=== PATIENT | male | born 1960 | race Two or more races ===

== ENCOUNTER 2016-11-05 17:44 | Emergency (ER) | payer MEDICARE, MEDICAID ==
[2016-11-05 17:52] VITALS: BP 128/81
[2016-11-05] MEDS ORDERED: BSS OPTH.SOL* BTL OPHTHALMIC ONE (18:32)
[2016-11-05] MEDS ORDERED: Fluorescein Sodium TOPICAL* 1 MG TEST OPHTHALMIC ONE (18:32)
[2016-11-05] MEDS ORDERED: Tetracaine 0.5% OPTH.SOL 4 ML* 1 DROP BTL ONE (18:33)
--- NOTE | 2016-11-05 18:35 | UC ---
Eye Complaint HPI - HPI Summary HPI Summary: awoke with a red irritated left eye was working under his truck last night and feels he may have gotten debris in it- - History of Current Complaint Chief Complaint: UCEye Stated Complaint: FOREIGN BODY IN EYE Time Seen by Provider: 11/05/16 18:27 Hx Obtained From: Patient Onset/Duration: Sudden Onset, Lasting Days - 1 Timing: Constant Severity Initially: Moderate Severity Currently: Moderate Pain Intensity: 6 Pain Scale Used: 0-10 Numeric Location of Injury: Conjunctiva Character: Foreign Body Sensation Aggravating Factor(s): Nothing Alleviating Factor(s): Darkness Associated Signs And Symptoms: Positive: Drainage (Clear) - Allergies/Home Medications Allergies/Adverse Reactions: Allergies Allergy/AdvReac Type Severity Reaction Status Date / Time Penicillins Allergy Intermediate Rash Verified 11/05/16 17:49 penici Allergy Rash Uncoded 02/28/14 11:47 PMH/Surg Hx/FS Hx/Imm Hx Previously Healthy: No Endocrine History: Dyslipidemia Cardiovascular History: Hypertension, Pacemaker/ICD, Atrial Fibrillation - Surgical History Surgical History: Yes Surgery Procedure, Year, and Place: pacemaker 04/2013, angioplasty 07/1990, 5 strokes in 2001 - Family History Known Family History: Positive: None - Social History Occupation: Disabled Lives: With Family Alcohol Use: Daily Alcohol Amount: 8-12 beers a day Substance Use Type: None Smoking Status (MU): Heavy Every Day Tobacco Smoker Type: Cigarettes Have You Smoked in the Last Year: Yes Household Exposure Type: Cigarettes Cessation Counseling: Counseled 3+Min - 10 Min - Immunization History Hx Tetanus, Diphtheria Vaccination: Yes Vaccination Up to Date: Yes Review of Systems Constitutional: Negative Skin: Negative Eyes: Drainage, Eye Redness ENT: Negative Respiratory: Negative Cardiovascular: Negative Gastrointestinal: Negative Genitourinary: Negative Motor: Negative Neurovascular: Negative Musculoskeletal: Negative Neurological: Negative Psychological: Negative Is Patient Immunocompromised?: No All Other Systems Reviewed And Are Negative: Yes Physical Exam Triage Information Reviewed: Yes Appearance: Well-Appearing, No Pain Distress, Obese Vital Signs: Initial Vital Signs Temp 98 F 11/05/16 17:50 Pulse 87 11/05/16 17:50 Resp 18 11/05/16 17:50 BP 128/81 11/05/16 17:50 Pulse Ox 100 11/05/16 17:50 Vital Signs Reviewed: Yes Eye Exam: Other Eyes: Positive: Conjunctiva Inflamed, Discharge ENT Exam: Normal ENT: Positive: Normal ENT inspection, Hearing grossly normal, Pharynx normal, TMs normal. Negative: Nasal congestion, Nasal drainage, Trismus, Muffled/ hoarse voice Neck exam: Normal Neck: Positive: Supple, Nontender Respiratory Exam: Normal Respiratory: Positive: Chest non-tender, No respiratory distress, No accessory muscle use Cardiovascular Exam: Normal Cardiovascular: Positive: RRR, No Murmur, Pulses Normal, Brisk Capillary Refill Musculoskeletal Exam: Normal Musculoskeletal: Positive: Strength Intact, ROM Intact, No Edema Neurological Exam: Normal Neurological: Positive: Alert, Muscle Tone Normal Psychological Exam: Normal Skin Exam: Normal Re-Evaluation - Re-Evaluation First Eval Change: Unchanged - lids fliped eye stained with flu-glu stain, no fb or ulceration observed, patient tolerated well Eye Complaint Course/Dx - Course Course Of Treatment: cool comppress, antibiodic eye drops, nicotine dependence education, follow with optho if worsens or fails to improve - Differential Dx/Diagnosis Differential Diagnosis/HQI/PQRI: Conjunctivitis, Periorbital Cellulitis, Orbital Cellulitis Provider Diagnoses: Nicotine dependent, OS conjuctivitis Discharge - Discharge Plan Condition: Stable Disposition: HOME Prescriptions: Polymyx/Trimethoprim OPTH* [Polytrim OPHTH*] 1 drop LEFT EYE Q4H #1 btl Patient Education Materials: How to Use Eye Drops (ED), Eye Foreign Body (ED) Referrals: Gabino Luis MD [Medical Doctor] - If Needed
== END 2016-11-05 19:06 | disposition home or self-care (01) ==
LOC: UCEAST 17:44
DX: H10.32 Unspecified acute conjunctivitis, left eye (principal); Z88.0 Allergy status to penicillin; E78.5 Hyperlipidemia, unspecified; I10 Essential (primary) hypertension; I48.91 Unspecified atrial fibrillation; Z95.0 Presence of cardiac pacemaker; E66.9 Obesity, unspecified; F17.210 Nicotine dependence, cigarettes, uncomplicated; Z71.6 Tobacco abuse counseling
CPT/HCPCS: 99212; A9270-GY; G0463

== ENCOUNTER 2017-03-16 13:43 | Emergency (ER) | payer MEDICARE, MEDICAID ==
[2017-03-16 13:57] VITALS: BP 135/62
--- NOTE | 2017-03-16 14:21 | UC ---
Shortness of Breath HPI - HPI Summary HPI Summary: PT WITH SEVERAL WEEK OF COUGH AND CONGESTION. PAST FEW DAYS HAS HAD INCREASING SOB AND HICKS. HAS SOB EVEN AT REST. FEELING EXTREMELY TIRED AND "DRAINED". DENIES CP, N/V. HAD A FEVER A FEW DAYS AGO BUT NONE SINCE THAT HE KNOWS OF. RIGHT EAR WITH INTERMITTENT SHARP PAINS. ON ARRIVAL O2SAT 84-89%. PT IS A HEAVY DRINKER AND SMOKER. HAS A NEBULIZER AT HOME. DID NOT USE IT. - History of Current Complaint Chief Complaint: UCRespiratory Stated Complaint: SINUS ISSUE COUGH EAR PAIN Time Seen by Provider: 03/16/17 14:04 Hx Obtained From: Patient Onset/Duration: Gradual Onset, Lasting Days, Still Present Timing: Constant Current Severity: Moderate Dyspnea At: Rest Aggrevating Factors: Movement, Deep Breaths Alleviating Factors: Nothing Associated Signs & Symptoms: Positive: Cough (Productive), Wheezing - Allergy/Home Medications Allergies/Adverse Reactions: Allergies Allergy/AdvReac Type Severity Reaction Status Date / Time Penicillins Allergy Intermediate Rash Verified 03/16/17 13:58 Amoxicillin Allergy hives, Verified 03/16/17 13:58 itching penici Allergy Rash Uncoded 02/28/14 11:47 Home Medications: Home Medications Warfarin TAB(*) [Coumadin TAB(*)] 1 tab PO 03/16/17 [History] PMH/Surg Hx/FS Hx/Imm Hx Cardiovascular History: Cardiac Disease, Pacemaker/ICD Respiratory History: COPD Neurological History: CVA - Surgical History Surgical History: Yes Surgery Procedure, Year, and Place: pacemaker 04/2013, angioplasty 07/1990, 5 strokes in 2001 - Family History Known Family History: Positive: Cardiac Disease, Hypertension - Social History Alcohol Use: Daily Alcohol Amount: 8-12 beers a day Substance Use Type: None Smoking Status (MU): Heavy Every Day Tobacco Smoker Type: Cigarettes Have You Smoked in the Last Year: Yes Household Exposure Type: Cigarettes - Immunization History Hx Tetanus, Diphtheria Vaccination: Yes Vaccination Up to Date: Yes Review of Systems Constitutional: Fever, Fatigue Respiratory: Shortness Of Breath, Cough Cardiovascular: Negative Gastrointestinal: Negative Neurological: Weakness All Other Systems Reviewed And Are Negative: Yes Physical Exam Triage Information Reviewed: Yes Appearance: Well-Appearing, No Pain Distress, Well-Nourished, Other: - APPEARS MUCH OLDER THAN STATED AGE Vital Signs: Initial Vital Signs Temp 100 F 03/16/17 13:48 Pulse 107 03/16/17 13:48 Resp 20 03/16/17 13:48 BP 135/62 03/16/17 13:48 Pulse Ox 89 03/16/17 13:48 Vital Signs Reviewed: Yes Eyes: Positive: Conjunctiva Clear ENT: Positive: Hearing grossly normal, Pharynx normal, Other - RIGHT EAC OCCLUDED WITH CERUMEN. AFTER IRRIGATION EAC SLIGHTLY MACERATED BUT TM NORMAL. LEFT TM NORMAL Neck: Positive: Supple, Nontender, No Lymphadenopathy Respiratory: Positive: No respiratory distress, No accessory muscle use, Decreased breath sounds. Negative: Rhonchi, Wheezing Cardiovascular: Positive: Tachycardia Abdomen Description: Positive: Soft Musculoskeletal: Positive: No Edema Neurological: Positive: Alert Psychological: Positive: Normal Response To Family, Age Appropriate Behavior Skin: Negative: rashes Shortness of Breath Dx - Differential Dx/Diagnosis Provider Diagnoses: HYPOXIA/SOB/COUGH - Physician Notification/Consults Discussed Patient Care With: Vidya Mchugh - TO [facility] – [place] ED BY AMBULANCE Time Discussed With Above Provider: 14:30 Instructed by Provider To: Will See In ED Discharge - Discharge Plan Condition: Stable Disposition: TRANS HIGHER LVL OF CARE FAC Patient Education Materials: Hypoxia (ED) Referrals: Gabino Hayes MD [Primary Care Provider] -
== END 2017-03-16 14:50 | disposition short-term general hospital (02) ==
LOC: UCEAST 13:43
DX: R09.02 Hypoxemia (principal); R06.02 Shortness of breath; R05 Cough; Z95.0 Presence of cardiac pacemaker; J44.9 Chronic obstructive pulmonary disease, unspecified; Z86.73 Personal history of transient ischemic attack (TIA), and cerebral infarction without residual deficits; Z79.01 Long term (current) use of anticoagulants; Z88.0 Allergy status to penicillin; F17.210 Nicotine dependence, cigarettes, uncomplicated
CPT/HCPCS: 99213; G0463

== ENCOUNTER 2017-03-16 15:06 | Inpatient (IN) | payer MEDICARE, MEDICAID ==
[2017-03-16] MEDS ORDERED: cefTRIAXone(*) 1 GM in NS 0.9% 50 ML* 50 ML IVPB ONE (15:51)
[2017-03-16] MEDS ORDERED: methylPREDNISolone 125 MG* 2 ML VIAL IV ONE (15:51)
[2017-03-16] MEDS ORDERED: Albuterol/Ipratropium NEB.SOL* Albuterol 2.5 MG/Ipratropium 0.5 MG 3 ML INH ONE (15:51)
[2017-03-16] MEDS ORDERED: Azithromycin IV(*) 500 MG in NS 0.9% 250 ML* 250 ML IVPB ONE (15:52)
[2017-03-16] MEDS ORDERED: NS 0.9% 1000 ML* 1,000 ML IV SCH ×2 (16:00→19:45)
--- NOTE | 2017-03-16 16:13 | RAD ---
Indication: 5 weeks cough and shortness of breath. COPD. Cardiac disease. Tobacco use. Comparison: January 15, 2016 CT. Technique: Upright AP 1554 hours Report: Elevated lung volumes. Negative for cardiomegaly. Prominent ill-defined central pulmonary vasculature and mild bilateral perihilar alveolar opacities cause mild prominence of the basilar interstitial markings. Rarefaction of the upper lung zone markings. RIGHT ventricular pacemaker lead. IMPRESSION: The constellation of findings is most consistent with mild alveolar and interstitial pulmonary edema superimposed on advanced chronic obstructive pulmonary disease and emphysema.
[2017-03-16 17:33] LABS: ABS Basophils 0.1 10^3/ul (0-0.2); ABS Eosinophils 0.1 10^3/ul (0-0.6); ABS Lymphocytes 1.1 10^3/ul (1.0-4.8); ABS Nucleated RBC 0 10^3/ul; Eosinophil % 1.6 % (0-6); Hematocrit 49 % (42-52); Hemoglobin 16.5 g/dl (14.0-18.0); Lymphocyte % 15.5 % (25-47); Mean Corpuscular HGB Conc 34 g/dl (31-36); Mean Corpuscular Hemoglobin 33 pg (27-31); Mean Corpuscular Volume 96 fL (80-94); Mean Platelet Volume 8 um3 (7.4-10.4); Nucleated Red Blood Cells % 0; Platelet Count 250 10^3/ul (150-450); Red Blood Count 5.05 10^6/ul (4.0-5.4); Red Cell Distribution Width 14 % (10.5-15); White Blood Count 7.3 10^3/ul (3.5-10.8)
[2017-03-16 17:45] LABS: EGFR Non-African American 101.5 (>60)
[2017-03-16 17:49] LABS: INR 3.06 (0.77-1.02)
--- NOTE | 2017-03-16 18:55 | ED ---
Abrahan Martinez Angela, scribed for Nam Reyes MD on 03/16/17 at 1548 . Shortness of Breath - HPI Summary HPI Summary: This pt is a 56 y/o male presenting to [facility] via EMS from [facility] c/o cough for 2 weeks with associated SOB. He reports his cough and SOB have been worsening over the past few days. Pt notes fever and productive cough with yellow sputum. He went to his PCP last week on Tuesday. Pt denies calf pain, LE swelling, chest pain. EMS reports the pt's O2 sat was in the 80s. Pt states he got a flu shot 2 weeks ago. PMHx includes COPD. Pt is a current every day smoker. He does not have a nebulizer at home. - History of Current Complaint Chief Complaint: EDShortnessOfBreath Time Seen by Provider: 03/16/17 15:38 Hx Obtained From: Patient, EMS Onset/Duration: Lasting Weeks, Still Present Timing: Constant Current Severity: Severe Dyspnea At: Rest Aggrevating Factors: Nothing Alleviating Factors: Oxygen Associated Signs & Symptoms: Cough (Productive), Fever - Allergy/Home Medications Allergies/Adverse Reactions: Allergies Allergy/AdvReac Type Severity Reaction Status Date / Time Penicillins Allergy Intermediate Rash Verified 03/16/17 13:58 Amoxicillin Allergy hives, Verified 03/16/17 13:58 itching penici Allergy Rash Uncoded 02/28/14 11:47 Home Medications: Home Medications Aspirin EC Low Dose* [Ecotrin EC Low Dose 81 MG*] 81 mg PO DAILY 03/16/17 [ History Confirmed 03/16/17] Carvedilol TAB* [Coreg TAB*] 6.25 mg PO BID 03/16/17 [History Confirmed 03/16/17 ] Simvastatin (NF) [Zocor (NF)] 40 mg PO DAILY 03/16/17 [History Confirmed ] Warfarin TAB(*) [Coumadin TAB(*)] 5 mg PO DAILY 03/16/17 [History Confirmed ] PMH/Surg Hx/FS Hx/Imm Hx Endocrine/Hematology History: Denies: Hx Diabetes Cardiovascular History: Reports: Hx Hypertension, Hx Pacemaker/ICD Respiratory History: Reports: Hx Chronic Obstructive Pulmonary Disease (COPD) - Surgical History Surgery Procedure, Year, and Place: pacemaker 04/2013, angioplasty 07/1990, 5 strokes in 2001 - Immunization History Date of Tetanus Vaccine: UTD Date of Influenza Vaccine: UTD Infectious Disease History: No Infectious Disease History: Denies: Hx Clostridium Difficile, Hx Hepatitis, Hx Human Immunodeficiency Virus (HIV), Hx of Known/Suspected MRSA, Hx Shingles, Hx Tuberculosis, Hx Known/ Suspected VRE, Hx Known/Suspected VRSA, History Other Infectious Disease, Traveled Outside the [place] in Last 30 Days - Family History Known Family History: Positive: Cardiac Disease, Hypertension - Social History Alcohol Use: Daily Alcohol Amount: 8-12 beers a day Substance Use Type: Reports: None Smoking Status (MU): Heavy Every Day Tobacco Smoker Type: Cigarettes Have You Smoked in the Last Year: Yes Review of Systems Positive: Fever Eyes: Negative Negative: Chest Pain Positive: Shortness Of Breath, Cough Skin: Negative Neurological: Negative All Other Systems Reviewed And Are Negative: Yes Physical Exam - Summary Physical Exam Summary: General: well-appearing, mild respiratory distress Skin: warm, color reflects adequate perfusion, dry Head: normal Eyes: EOMI, LEONARD ENT: normal Neck: supple, nontender Respiratory: Poor airway movement. Coarse rhonchi at the bases. Wheezes. Cardiovascular: tachycardic. Abdomen: soft, nontender Bowel: present Musculoskeletal: normal, strength/ROM intact Neurological: normal, sensory/motor intact, A&O x3 Psychological: affect/mood appropriate Triage Information Reviewed: Yes Vital Signs On Initial Exam: Initial Vitals Temp Pulse Resp BP Pulse Ox 100.1 F 108 24 122/81 83 03/16/17 15:19 03/16/17 15:19 03/16/17 15:19 03/16/17 15:19 03/16/17 15:19 Vital Signs Reviewed: Yes - [place] Coma Scale Coma Scale Total: 15 Diagnostics - Vital Signs Vital Signs Temp Pulse Resp BP Pulse Ox 03/16/17 15:19 100.1 F 108 24 122/81 83 - Laboratory Lab Results: Lab Results 03/16/17 03/16/17 03/16/17 Range/Units 16:40 16:40 16:40 WBC (3.5-10.8) 10^3/ul RBC (4.0-5.4) 10^6/ul Hgb (14.0-18.0) g/dl Hct (42-52) % MCV (80-94) fL MCH (27-31) pg MCHC (31-36) g/dl RDW (10.5-15) % Plt Count (150-450) 10^3/ul MPV (7.4-10.4) um3 Neut % (Auto) (38-83) % Lymph % (Auto) (25-47) % Hudspeth % (Auto) (1-9) % Eos % (Auto) (0-6) % Baso % (Auto) (0-2) % Absolute Neuts (auto) (1.5-7.7) 10^3/ul Absolute Lymphs (auto) (1.0-4.8) 10^3/ul Absolute Monos (auto) (0-0.8) 10^3/ul Absolute Eos (auto) (0-0.6) 10^3/ul Absolute Basos (auto) (0-0.2) 10^3/ul Absolute Nucleated RBC 10^3/ul Nucleated RBC % INR (Anticoag Therapy) 3.06 H (0.77-1.02) APTT 46.2 H (26.0-36.3) seconds VBG pH (7.33-7.43) VBG pCO2 (41-51) mmHg VBG pO2 (35-45) mmHg VBG HCO3 (24-28) mmol/L VBG O2 Saturation (70-80) % VBG Base Excess (0-4) Sodium 133 (133-145) mmol/L Potassium 4.2 (3.5-5.0) mmol/L Chloride 101 (101-111) mmol/L Carbon Dioxide 24 (22-32) mmol/L Anion Gap 8 (2-11) mmol/L BUN 9 (6-24) mg/dL Creatinine 0.79 (0.67-1.17) mg/dL Est GFR ( Amer) 130.5 (>60) Est GFR (Non-Af Amer) 101.5 (>60) BUN/Creatinine Ratio 11.4 (8-20) Glucose 86 (70-100) mg/dL Lactic Acid 0.8 (0.5-2.0) mmol/L Calcium 8.6 (8.6-10.3) mg/dL Total Bilirubin 0.70 (0.2-1.0) mg/dL AST 41 H (13-39) U/L ALT 45 (7-52) U/L Alkaline Phosphatase 101 (34-104) U/L Troponin I 0.04 H* (<0.04) ng/mL C-Reactive Protein 54.47 H (< 5.00) mg/L B-Natriuretic Peptide ( - 100) pg/mL Total Protein 6.6 (6.4-8.9) g/dL Albumin 3.0 L (3.2-5.2) g/dL Globulin 3.6 (2-4) g/dL Albumin/Globulin Ratio 0.8 L (1-3) Influenza A (Rapid) (Negative) Influenza B (Rapid) (Negative) 03/16/17 03/16/17 03/16/17 Range/Units 16:40 16:40 16:50 WBC 7.3 (3.5-10.8) 10^3/ul RBC 5.05 (4.0-5.4) 10^6/ul Hgb 16.5 (14.0-18.0) g/dl Hct 49 (42-52) % MCV 96 H (80-94) fL MCH 33 H (27-31) pg MCHC 34 (31-36) g/dl RDW 14 (10.5-15) % Plt Count 250 (150-450) 10^3/ul MPV 8 (7.4-10.4) um3 Neut % (Auto) 68.7 (38-83) % Lymph % (Auto) 15.5 L (25-47) % Hudspeth % (Auto) 13.5 H (1-9) % Eos % (Auto) 1.6 (0-6) % Baso % (Auto) 0.7 (0-2) % Absolute Neuts (auto) 5.0 (1.5-7.7) 10^3/ul Absolute Lymphs (auto) 1.1 (1.0-4.8) 10^3/ul Absolute Monos (auto) 1.0 H (0-0.8) 10^3/ul Absolute Eos (auto) 0.1 (0-0.6) 10^3/ul Absolute Basos (auto) 0.1 (0-0.2) 10^3/ul Absolute Nucleated RBC 0 10^3/ul Nucleated RBC % 0 INR (Anticoag Therapy) (0.77-1.02) APTT (26.0-36.3) seconds VBG pH 7.41 (7.33-7.43) VBG pCO2 39 L (41-51) mmHg VBG pO2 48 H (35-45) mmHg VBG HCO3 24.5 (24-28) mmol/L VBG O2 Saturation 83.9 H (70-80) % VBG Base Excess 0.2 (0-4) Sodium (133-145) mmol/L Potassium (3.5-5.0) mmol/L Chloride (101-111) mmol/L Carbon Dioxide (22-32) mmol/L Anion Gap (2-11) mmol/L BUN (6-24) mg/dL Creatinine (0.67-1.17) mg/dL Est GFR ( Amer) (>60) Est GFR (Non-Af Amer) (>60) BUN/Creatinine Ratio (8-20) Glucose (70-100) mg/dL Lactic Acid (0.5-2.0) mmol/L Calcium (8.6-10.3) mg/dL Total Bilirubin (0.2-1.0) mg/dL AST (13-39) U/L ALT (7-52) U/L Alkaline Phosphatase (34-104) U/L Troponin I (<0.04) ng/mL C-Reactive Protein (< 5.00) mg/L B-Natriuretic Peptide 253 H ( - 100) pg/mL Total Protein (6.4-8.9) g/dL Albumin (3.2-5.2) g/dL Globulin (2-4) g/dL Albumin/Globulin Ratio (1-3) Influenza A (Rapid) (Negative) Influenza B (Rapid) (Negative) 03/16/17 Range/Units 17:44 WBC (3.5-10.8) 10^3/ul RBC (4.0-5.4) 10^6/ul Hgb (14.0-18.0) g/dl Hct (42-52) % MCV (80-94) fL MCH (27-31) pg MCHC (31-36) g/dl RDW (10.5-15) % Plt Count (150-450) 10^3/ul MPV (7.4-10.4) um3 Neut % (Auto) (38-83) % Lymph % (Auto) (25-47) % Hudspeth % (Auto) (1-9) % Eos % (Auto) (0-6) % Baso % (Auto) (0-2) % Absolute Neuts (auto) (1.5-7.7) 10^3/ul Absolute Lymphs (auto) (1.0-4.8) 10^3/ul Absolute Monos (auto) (0-0.8) 10^3/ul Absolute Eos (auto) (0-0.6) 10^3/ul Absolute Basos (auto) (0-0.2) 10^3/ul Absolute Nucleated RBC 10^3/ul Nucleated RBC % INR (Anticoag Therapy) (0.77-1.02) APTT (26.0-36.3) seconds VBG pH (7.33-7.43) VBG pCO2 (41-51) mmHg VBG pO2 (35-45) mmHg VBG HCO3 (24-28) mmol/L VBG O2 Saturation (70-80) % VBG Base Excess (0-4) Sodium (133-145) mmol/L Potassium (3.5-5.0) mmol/L Chloride (101-111) mmol/L Carbon Dioxide (22-32) mmol/L Anion Gap (2-11) mmol/L BUN (6-24) mg/dL Creatinine (0.67-1.17) mg/dL Est GFR ( Amer) (>60) Est GFR (Non-Af Amer) (>60) BUN/Creatinine Ratio (8-20) Glucose (70-100) mg/dL Lactic Acid (0.5-2.0) mmol/L Calcium (8.6-10.3) mg/dL Total Bilirubin (0.2-1.0) mg/dL AST (13-39) U/L ALT (7-52) U/L Alkaline Phosphatase (34-104) U/L Troponin I (<0.04) ng/mL C-Reactive Protein (< 5.00) mg/L B-Natriuretic Peptide ( - 100) pg/mL Total Protein (6.4-8.9) g/dL Albumin (3.2-5.2) g/dL Globulin (2-4) g/dL Albumin/Globulin Ratio (1-3) Influenza A (Rapid) Negative (Negative) Influenza B (Rapid) Negative (Negative) Result Diagrams: 03/16/17 16:40 03/16/17 16:40 Lab Statement: Any lab studies that have been ordered have been reviewed, and results considered in the medical decision making process. - Radiology Chest XR Xray Interpretation: Positive (See Comments) - IMPRESSION: The constellation of findings is most consistent with mild alveolar and insterstitial pulmonary edema superimposed on advanced chronic obstructive pulmonary disease and emphysema. Dr. Reyes has reviewed this radiology report. Radiology Interpretation Completed By: Radiologist - EKG 15:41 Cardiac Rate: NL EKG Rhythm: Sinus Rhythm - at [address] Segment: Normal Ectopy: None EKG Interpretation: Q waves in anterior leads. Course/Dx - Course Course Of Treatment: Medications reviewed. Allergies noted. Labs show INR of 3.06, troponin is 0.04, CRP is 54.47, BNP is 253. Chest XR shows the constellation of findings is most consistent with mild alveolar and insterstitial pulmonary edema superimposed on advanced chronic obstructive pulmonary disease and emphysema. In the ED course, the pt was given IV fluids, duoneb, Rocephin, solu-medrol, and azithromycin. I discussed pt care with tanvi Huang, who has agreed to admit the pt. ADMIT HOSPITALIST. CRITICAL CARE TIME LESS THAN 30 MINUTES. - Diagnoses Provider Diagnoses: Hypoxia, COPD exacerbation, Elevated troponin - Physician Notifications Discussed Care of Patient With: Humberto Mariscal Time Discussed With Above Provider: 18:52 Instructed by Provider To: Other - I discussed pt care with tanvi Huang, who has agreed to admit the pt. Discharge - Discharge Plan Condition: Stable Disposition: ADMITTED TO [facility] Referrals: Gabino Hayes MD [Primary Care Provider] - The documentation as recorded by the Abrahan yuan Angela accurately reflects the service I personally performed and the decisions made by me, Nam Reyes MD.
[2017-03-16] MEDS ORDERED: Albuterol 2.5 MG/3 ML NEB.SOL* (0.083%) INH PRN (19:39)
[2017-03-16] MEDS ORDERED: Acetaminophen TAB* 325 MG PO PRN (19:39)
[2017-03-16] MEDS ORDERED: Ondansetron INJ* 2 MG/ML VIAL IV PRN (19:39)
[2017-03-16] MEDS ORDERED: Iohexol 350* (CONTRAST) 500 ML MDV IV ONE (19:47)
[2017-03-16] MEDS: Albuterol/Ipratropium NEB.SOL* Albuterol 2.5 MG/Ipratropium 0.5 MG 3 ML INH SCH ×2 (19:52→22:44)
[2017-03-16] MEDS ORDERED: LORazepam TAB(*) 1 MG PO SCH (20:00)
[2017-03-16] MEDS: Mometasone/Formoter 200/5 MDI INH SCH (20:24)
--- NOTE | 2017-03-16 20:51 | RAD ---
INDICATION: Desaturation in a patient with COPD COMPARISON: CT of the chest dated January 25, 2006 TECHNIQUE: Axial source images were acquired following the administration of 84 mL Omnipaque [address] angiographic technique. Coronal and sagittal reconstructed images were constructed and reviewed. FINDINGS: Unless otherwise specified comparisons below reference the 2006 CT of the chest. The left cardiac pacemaker with single lead overlying the heart is noted. Bolus filling of the pulmonary arteries is suboptimal and there is streak artifact caused by contrast filling the superior vena cava. There there are no filling defects in the pulmonary arteries to indicate acute pulmonary embolic disease. The lungs exhibit diffuse centrilobular emphysematous changes similar in appearance to the previous CT examination, though slightly progressed. There is pleural-based density at the bilateral lung bases, new since the previous CT the chest, and with a morphology most consistent with atelectasis. The heart is normal in size. There is no evidence of pericardial effusion. There is no evidence of aortic aneurysm or dissection. There is calcification at the apex of the left ventricle. There is coarse calcification at the arch of the aorta. There is a cluster of subcarinal lymph nodes measuring 1.4 x 3.2 cm in maximum axial dimension. There is a right of midline anterior paratracheal lymph node measuring 11 mm in short axis diameter. Other lymph nodes are seen in the mediastinum but are not pathologically enlarged. Degenerative changes of the thoracic spine includes loss of intervertebral disc height. Limited views of the upper abdomen show no abnormalities. IMPRESSION: 1. No CT of evidence of pulmonary embolism. 2. Diffuse centrilobular emphysematous changes of the lungs slightly more progressed when compared to the 2006 CT of the chest. 3. Pleural-based density of the bilateral lung bases is most consistent morphologically with atelectasis but pneumonia is not completely excluded. 4. Mediastinal lymph nodes mildly increased in size of uncertain clinical significance.
--- NOTE | 2017-03-16 22:35 | HP ---
CC: Dr. Hayes* HISTORY AND PHYSICAL: DATE OF ADMISSION: 03/16/17 PRIMARY CARE PROVIDER: Dr. Hayes. ATTENDING PHYSICIAN WHILE IN THE HOSPITAL: Andres Prince MD * (report dictated by Raymon Grimm NP). CHIEF COMPLAINT: 1. Cough. 2. Shortness of breath. 3. Not feeling well. HISTORY OF PRESENT ILLNESS: Mr. Salazar is a 56-year-old male patient, he carries a history of CAD, he has a history of COPD, history of GA in the past and a history of CVA, hypertension, and hyperlipidemia. He comes into our ER today stating that over the last 6 weeks he has not been feeling himself. He has had a cough off and on, but the last week it has been much worse. He has been around sick contacts. His has had URI symptoms, as his [id number] has as well. He says he has been coughing, he has been bringing up yellow sputum worsened first thing in the morning. He is more shortness of breath first thing in the morning. He says he has been lying on his side at night. He has been doing well with this. He has not required pillows. He has been having more dyspnea on exertion. He denies any chest discomfort and said he was concerned because he just was not getting any better. He has been much more short of breath the last several days and he decided to come into our ER today. Again, there has been no weight changes that he is aware of. He denies having any swelling of the lower extremities. He denies having any recent trips or travel. He says that he has not had any chest tightness. No orthopnea. There has been dyspnea on exertion and has been this progressive worsening cough productive of yellow sputum. He says he coughs copious amount of sputum first thing in the morning. He was evaluated here in the ED. It was noted that he was requiring O2, appeared to be hypoxic and we were asked to evaluate for admission. His sats on 4 L have been running 89% to 88%, some times as high as 92%. PAST MEDICAL HISTORY: Significant for: 1. CAD. 2. GA. 3. CVA. 4. COPD. 5. Hypertension. 6. Hyperlipidemia. PAST SURGICAL HISTORY: The patient has had a heart catheterization and the patient has had a pacemaker placed. HOME MEDICATIONS: Include: 1. Aspirin 81 mg daily. 2. Warfarin 5 mg daily. 3. Zocor 40 mg daily. 4. Carvedilol 6.25 mg p.o. b.i.d. ALLERGIES TO MEDICATIONS: Include AMOXICILLIN and PENICILLIN. FAMILY HISTORY: His mother's history is unknown. Father did have a history of heart disease. SOCIAL HISTORY: He is about a 2-pack a day smoker for about 40 years. He declined a nicotine patch. He does drink 12 to 15 beers a day when he was feeling good. He has only been drinking about 3 to 5 beers a day. Surrogate decision maker is his brother, Saulo. REVIEW OF SYSTEMS: There was no documented fever. He does admit to subjectively having chills and that he has been sweating. He denies having any abdominal pain. There has been no nausea, no vomiting. No dysuria, no frequency. There was no seizure. No loss of consciousness, no pruritus, and no skin ulcerations. Review of 14 systems completed, all others negative. PHYSICAL EXAMINATION GENERAL: At this time, Mr. Salazar is a 56-year-old male patient. He is sitting in the ED stretcher. He does not appear to be in any acute distress. VITAL SIGNS: Blood pressure 136/70 with a pulse of 100, O2 sat was 90% now on 4 L, respirations were 18, and temperature 100.1. HEENT: Head: Atraumatic. Eyes: EOMs are intact. Sclerae anicteric and not pale. Throat: Oral mucosa appears to be moist. No oropharyngeal erythema. NECK: Supple. LUNGS: He does have rhonchi throughout and wheezing expiratory throughout as well. He had equal diaphragmatic expansion. HEART: Sounds S1 and S2. Regular rate and rhythm. No murmurs, rubs, or gallops. ABDOMEN: Soft, it was flat, it was nontender. Bowel sounds are present. EXTREMITIES: Pulses are 2+ throughout. He is moving all 4 extremities with 5/ 5 strength. NEUROLOGIC: The patient is awake. He is alert. He is oriented x3. His tongue is midline. Cartridge Assembling Machine Adjuster are equal. He had no gross focal deficits. His skin was intact. DIAGNOSTIC STUDIES/LAB DATA: WBC of 7.3, RBC of 5.05, hemoglobin of 16.5, hematocrit of 49, and platelet count of 250. INR was 3.06, PTT of 46.2. His pH was 7.41, pCO2 of 39, pO2 of 48, bicarb was 24, again this is a venous. Sodium of 133, potassium of 4.2, chloride of 101, carbon 24, BUN 9, creatinine of 0.79, glucose 86, lactate 0.8, calcium 8.6. Total bili 0.7, AST 41, ALT 45, alk phos 101. Troponin 0.04. CRP of 54. BNP of 253, albumin of 3. Serology negative for flu. He had a chest x-ray obtained today. My impression is that I am concerned that he may have possible pneumonia, but radiology read this as a constellation of findings consistent with mild alveolar interstitial edema superimposed and advanced COPD. He had an EKG obtained today which does show a left bundle-branch block, rate of 96 had this previously. On previous EKG, he has got a left bundle branch block. Old medical records were reviewed. ASSESSMENT AND PLAN: Mr. Salazar is a 56-year-old male patient with multiple medical problems, coming into the ED today with complaints of cough over the last week, progressive worsening shortness of breath. There was concern today for possible pneumonia and chronic obstructive pulmonary disease exacerbation. He will be admitted under inpatient status for: 1. Chronic obstructive pulmonary disease exacerbation. At this point, I will go ahead and put him on steroids, nebs, flutter valve, antibiotics, and we will panculture the patient, try to get sputum cultures, and try to get a Legionella antigen and Strep pneumo antigen. I am also setting off a procalcitonin and we will continue with aggressive pulmonary toileting for the time being. I am concerned that he is a little mildly hypoxic, so I am going to get a CTA of the chest. I suspect that pulmonary embolism is less likely because he is on Coumadin and is therapeutic, but I will check the CTA to rule out pulmonary embolism to make sure there are no underlying infiltrates. 2. Coronary artery disease. Continue with aspirin, statin, and beta-yves. 3. History of myocardial infarction. Again, I will ask him to start on beta- yves. 4. History of cerebrovascular accident. Continue with secondary prevention. 5. History of hypertension. Continue his beta-yves. 6. Hyperlipidemia. Continue statin therapy. 7. Indeterminate troponin is probably secondary to demand ischemia from chronic obstructive pulmonary disease exacerbation. Continue meds as prescribed. 8. Warfarin therapy. At this point, the patient is unclear as to why he is on warfarin. He has no artificial valve. I am assuming he is on this because of atrial fibrillation, but because he says he like wants to keep his INR between 2 and 3. I am going to try to get records from Dr. Hayes's office and Dr. Galdamez' office, the patient's utilization review specialist. 9. DVT prophylaxis. INR is 3. We will place him on SCDs for the time being. 10. Code status. At this point, he is unsure if he wants to be a DNR or full code. I did explain to him what DNR means. He does state that he has a granddaughter. He has always stated that if his heart stops, he would like to pass out, but at this point he is unsure, he is going to discuss this with his family and get back to me. I did explain to him that we will leave him as a full code for the time being, but if he does choose to be a DNR, we will fill out paper work. 11. Fluids, electrolytes, and nutrition. He can have a heart healthy diet. TIME SPENT: On admission 60 minutes, greater than half the time was spent face- to- face with the patient obtaining my history and physical, other half time spent going over the plan of care with the patient and implementing the plan of care. I did discuss the plan of care with my attending, Dr. Prince; he is in agreement. RAYMON GRIMM, GILBERTO [id number]/CPS #: [id number] LUCÍA
[2017-03-16] MEDS: methylPREDNISolone 125 MG* 2 ML VIAL IV SCH (23:05)
[2017-03-16] MEDS: Carvedilol TAB* 6.25 MG PO SCH (23:06)
[2017-03-17] MEDS: Albuterol/Ipratropium NEB.SOL* Albuterol 2.5 MG/Ipratropium 0.5 MG 3 ML INH SCH ×4 (03:30→19:53)
[2017-03-17 06:20] LABS: ABS Basophils 0 10^3/ul (0-0.2); ABS Eosinophils 0 10^3/ul (0-0.6); ABS Lymphocytes 0.6 10^3/ul (1.0-4.8); ABS Monocytes 0.1 10^3/ul (0-0.8); ABS Nucleated RBC 0 10^3/ul; Eosinophil % 0.1 % (0-6); Hematocrit 49 % (42-52); Hemoglobin 16.8 g/dl (14.0-18.0); Lymphocyte % 9.1 % (25-47); Mean Corpuscular HGB Conc 34 g/dl (31-36); Mean Corpuscular Hemoglobin 33 pg (27-31); Mean Corpuscular Volume 96 fL (80-94); Mean Platelet Volume 8 um3 (7.4-10.4); Nucleated Red Blood Cells % 0; Platelet Count 251 10^3/ul (150-450); Red Cell Distribution Width 14 % (10.5-15); White Blood Count 6.7 10^3/ul (3.5-10.8)
[2017-03-17 06:35] LABS: EGFR Non-African American 101.5 (>60); INR 3.08 (0.77-1.02)
[2017-03-17 06:57] LABS: Urine Appearance Clear; Urine Blood Negative (Negative); Urine Color Yellow; Urine Ketones Negative (Negative); Urine Protein 1+(30 mg/dL) (Negative); Urine Specific Gravity 1.042 (1.010-1.030); Urine Urobilinogen Positive (Negative)
[2017-03-17] MEDS: methylPREDNISolone 125 MG* 2 ML VIAL IV SCH ×2 (08:01→19:45)
[2017-03-17] MEDS: Carvedilol TAB* 6.25 MG PO SCH ×2 (08:02→19:45)
[2017-03-17] MEDS: Thiamine TAB* 100 MG TAB PO SCH (08:02)
[2017-03-17] MEDS: Multivitamins/Minerals TAB PO SCH (08:02)
[2017-03-17] MEDS: Folic Acid TAB* 1 MG PO SCH (08:02)
[2017-03-17] MEDS: Atorvastatin* 20 MG TAB PO SCH (08:02)
[2017-03-17] MEDS: Aspirin EC Low Dose* 81 MG TAB.EC PO SCH (08:02)
[2017-03-17] MEDS: Mometasone/Formoter 200/5 MDI INH SCH ×2 (08:16→19:55)
--- NOTE | 2017-03-17 10:04 | PN ---
Subjective Date of Service: 03/17/17 Interval History: Still with significant oxygen requirments 90% on 8L. No chest pain. minimal cough. CTA no PE. Afebrile now, 100.1 initially. Does not know why on coumadin. tachycardia resolving. Cut back on his drinking to 6 beers week prior to admission from 6-10 beers nightly. Objective Active Medications: Acetaminophen (Tylenol Tab*) 650 mg PO Q4H PRN PRN Reason: FEVER/PAIN Albuterol (Ventolin 2.5 Mg/3 Ml Neb.Aicha*) 2.5 mg INH Q2H PRN PRN Reason: SOB/WHEEZING Last Admin: 03/17/17 05:46 Dose: 2.5 mg Albuterol/Ipratropium (Duoneb (Albuterol 2.5 Mg/Ipratropium 0.5 Mg)) 1 neb INH [id number] AWAKE [facility] Aspirin (Aspirin Ec Low Dose*) 81 mg PO DAILY [facility] Last Admin: 03/17/17 08:02 Dose: 81 mg Atorvastatin Calcium (Lipitor*) 20 mg PO DAILY [facility] Last Admin: 03/17/17 08:02 Dose: 20 mg Carvedilol (Coreg Tab*) 6.25 mg PO BID [facility] Last Admin: 03/17/17 08:02 Dose: 6.25 mg Folic Acid (Folvite Tab*) 1 mg PO DAILY [facility] Last Admin: 03/17/17 08:02 Dose: 1 mg Azithromycin 500 mg/ Sodium (Chloride) 250 mls @ 250 mls/hr IVPB Q24H [facility] Ceftriaxone Sodium 1 gm/ (Sodium Chloride) 50 mls @ 200 mls/hr IVPB Q24H [facility] Sodium Chloride (Ns 0.9% 1000 Ml*) 1,000 mls @ 100 mls/hr IV PER RATE [facility] Last Admin: 03/16/17 23:14 Dose: 100 mls/hr Lorazepam (Ativan Tab(*)) 0 - 6 mg PO .PER [facility] PROTOCOL LEVON PRN Reason: Protocol Methylprednisolone Sodium Succinate (Solu-Medrol 125mg *) 60 mg IV Q12H [facility] Last Admin: 03/17/17 08:01 Dose: 60 mg Mometasone Furoate/Formoterol Fumar (Dulera 200/5 Mdi*) 2 puff INH BID [facility] Last Admin: 03/17/17 08:16 Dose: Not Given Multivitamins/Minerals (Theragran/Minerals Tab*) 1 tab PO DAILY [facility] Last Admin: 03/17/17 08:02 Dose: 1 tab Ondansetron HCl (Zofran Inj*) 4 mg IV Q6H PRN PRN Reason: NAUSEA Thiamine HCl (Vitamin B-1 Tab*) 100 mg PO DAILY [facility] Last Admin: 03/17/17 08:02 Dose: 100 mg Vital Signs - 8 hr 03/17/17 03/17/17 03/17/17 03:53 05:09 05:46 Temperature 98.1 F 97.8 F Pulse Rate 86 93 96 Respiratory 20 20 16 Rate Blood Pressure 116/80 121/83 (mmHg) O2 Sat by Pulse 92 94 89 Oximetry 03/17/17 03/17/17 03/17/17 07:40 08:00 08:28 Temperature 97.8 F Pulse Rate 93 92 Respiratory 16 18 16 Rate Blood Pressure 125/82 (mmHg) O2 Sat by Pulse 92 91 Oximetry 03/17/17 09:18 Temperature Pulse Rate 98 Respiratory 18 Rate Blood Pressure 129/81 (mmHg) O2 Sat by Pulse 90 Oximetry Oxygen Devices in Use Now: Nasal Cannula Appearance: NAD, resting comfortably in bed. Eyes: No Scleral Icterus, PERRLA Ears/Nose/Mouth/Throat: NL Teeth, Lips, Gums, Mucous Membranes Moist Respiratory: Symmetrical Chest Expansion and Respiratory Effort, Clear to Auscultation, - - slightly diminished air exchange b/l Cardiovascular: NL Sounds; No Murmurs; No JVD, RRR Abdominal: NL Sounds; No Tenderness; No Distention, No Hepatosplenomegaly Extremities: No Edema, No Clubbing, Cyanosis Skin: No Rash or Ulcers, No Nodules or Sclerosis Neurological: Alert and Oriented x 3, NL Sensation, NL Muscle Strength and Tone Result Diagrams: 03/17/17 05:41 03/17/17 05:41 Additional Lab and Data: Laboratory Results - last 24 hr 03/16/17 03/16/17 03/16/17 16:40 16:40 16:40 WBC RBC Hgb Hct MCV MCH MCHC RDW Plt Count MPV Neut % (Auto) Lymph % (Auto) [place] % (Auto) Eos % (Auto) Baso % (Auto) Absolute Neuts (auto) Absolute Lymphs (auto) Absolute Monos (auto) Absolute Eos (auto) Absolute Basos (auto) Absolute Nucleated RBC Nucleated RBC % INR (Anticoag Therapy) 3.06 H APTT 46.2 H VBG pH VBG pCO2 VBG pO2 VBG HCO3 VBG O2 Saturation VBG Base Excess Sodium 133 Potassium 4.2 Chloride 101 Carbon Dioxide 24 Anion Gap 8 BUN 9 Creatinine 0.79 Est GFR ( Amer) 130.5 Est GFR (Non-Af Amer) 101.5 BUN/Creatinine Ratio 11.4 Glucose 86 Lactic Acid 0.8 Calcium 8.6 Total Bilirubin 0.70 AST 41 H ALT 45 Alkaline Phosphatase 101 Troponin I 0.04 H* C-Reactive Protein 54.47 H B-Natriuretic Peptide Total Protein 6.6 Albumin 3.0 L Globulin 3.6 Albumin/Globulin Ratio 0.8 L Procalcitonin Urine Color Urine Appearance Urine pH Ur Specific [place] Urine Protein Urine Ketones Urine Blood Urine Nitrate Urine Bilirubin Urine Urobilinogen Ur Leukocyte Esterase Urine WBC (Auto) Urine RBC (Auto) Urine Bacteria Urine Sperm Urine Glucose Influenza A (Rapid) Influenza B (Rapid) 03/16/17 03/16/17 03/16/17 16:40 16:40 16:40 WBC 7.3 RBC 5.05 Hgb 16.5 Hct 49 MCV 96 H MCH 33 H MCHC 34 RDW 14 Plt Count 250 MPV 8 Neut % (Auto) 68.7 Lymph % (Auto) 15.5 L [place] % (Auto) 13.5 H Eos % (Auto) 1.6 Baso % (Auto) 0.7 Absolute Neuts (auto) 5.0 Absolute Lymphs (auto) 1.1 Absolute Monos (auto) 1.0 H Absolute Eos (auto) 0.1 Absolute Basos (auto) 0.1 Absolute Nucleated RBC 0 Nucleated RBC % 0 INR (Anticoag Therapy) APTT VBG pH VBG pCO2 VBG pO2 VBG HCO3 VBG O2 Saturation VBG Base Excess Sodium Potassium Chloride Carbon Dioxide Anion Gap BUN Creatinine Est GFR ( Amer) Est GFR (Non-Af Amer) BUN/Creatinine Ratio Glucose Lactic Acid Calcium Total Bilirubin AST ALT Alkaline Phosphatase Troponin I C-Reactive Protein B-Natriuretic Peptide 253 H Total Protein Albumin Globulin Albumin/Globulin Ratio Procalcitonin 0.6 H Urine Color Urine Appearance Urine pH Ur Specific [place] Urine Protein Urine Ketones Urine Blood Urine Nitrate Urine Bilirubin Urine Urobilinogen Ur Leukocyte Esterase Urine WBC (Auto) Urine RBC (Auto) Urine Bacteria Urine Sperm Urine Glucose Influenza A (Rapid) Influenza B (Rapid) 03/16/17 03/16/17 03/16/17 16:50 17:44 19:50 WBC RBC Hgb Hct MCV MCH MCHC RDW Plt Count MPV Neut % (Auto) Lymph % (Auto) [place] % (Auto) Eos % (Auto) Baso % (Auto) Absolute Neuts (auto) Absolute Lymphs (auto) Absolute Monos (auto) Absolute Eos (auto) Absolute Basos (auto) Absolute Nucleated RBC Nucleated RBC % INR (Anticoag Therapy) APTT VBG pH 7.41 VBG pCO2 39 L VBG pO2 48 H VBG HCO3 24.5 VBG O2 Saturation 83.9 H VBG Base Excess 0.2 Sodium Potassium Chloride Carbon Dioxide Anion Gap BUN Creatinine Est GFR ( Amer) Est GFR (Non-Af Amer) BUN/Creatinine Ratio Glucose Lactic Acid Calcium Total Bilirubin AST ALT Alkaline Phosphatase Troponin I 0.05 H* C-Reactive Protein B-Natriuretic Peptide Total Protein Albumin Globulin Albumin/Globulin Ratio Procalcitonin Urine Color Urine Appearance Urine pH Ur Specific [place] Urine Protein Urine Ketones Urine Blood Urine Nitrate Urine Bilirubin Urine Urobilinogen Ur Leukocyte Esterase Urine WBC (Auto) Urine RBC (Auto) Urine Bacteria Urine Sperm Urine Glucose Influenza A (Rapid) Negative Influenza B (Rapid) Negative 03/16/17 03/17/17 03/17/17 23:35 05:23 05:41 WBC 6.7 RBC 5.10 Hgb 16.8 Hct 49 MCV 96 H MCH 33 H MCHC 34 RDW 14 Plt Count 251 MPV 8 Neut % (Auto) 88.6 H Lymph % (Auto) 9.1 L [place] % (Auto) 1.8 Eos % (Auto) 0.1 Baso % (Auto) 0.4 Absolute Neuts (auto) 6.0 Absolute Lymphs (auto) 0.6 L Absolute Monos (auto) 0.1 Absolute Eos (auto) 0 Absolute Basos (auto) 0 Absolute Nucleated RBC 0 Nucleated RBC % 0 INR (Anticoag Therapy) APTT VBG pH VBG pCO2 VBG pO2 VBG HCO3 VBG O2 Saturation VBG Base Excess Sodium Potassium Chloride Carbon Dioxide Anion Gap BUN Creatinine Est GFR ( Amer) Est GFR (Non-Af Amer) BUN/Creatinine Ratio Glucose Lactic Acid Calcium Total Bilirubin AST ALT Alkaline Phosphatase Troponin I 0.03 C-Reactive Protein B-Natriuretic Peptide Total Protein Albumin Globulin Albumin/Globulin Ratio Procalcitonin Urine Color Yellow Urine Appearance Clear Urine pH 6.0 Ur Specific [place] 1.042 H Urine Protein 1+(30 mg/dl) H Urine Ketones Negative Urine Blood Negative Urine Nitrate Negative Urine Bilirubin Negative Urine Urobilinogen Positive H Ur Leukocyte Esterase Negative Urine WBC (Auto) Trace(0-5/hpf) Urine RBC (Auto) Trace(0-2/hpf) Urine Bacteria Absent Urine Sperm Present H Urine Glucose 2+(150 mg/dl) H Influenza A (Rapid) Influenza B (Rapid) 03/17/17 03/17/17 05:41 05:41 WBC RBC Hgb Hct MCV MCH MCHC RDW Plt Count MPV Neut % (Auto) Lymph % (Auto) [place] % (Auto) Eos % (Auto) Baso % (Auto) Absolute Neuts (auto) Absolute Lymphs (auto) Absolute Monos (auto) Absolute Eos (auto) Absolute Basos (auto) Absolute Nucleated RBC Nucleated RBC % INR (Anticoag Therapy) 3.08 H APTT VBG pH VBG pCO2 VBG pO2 VBG HCO3 VBG O2 Saturation VBG Base Excess Sodium 132 L Potassium 4.1 Chloride 103 Carbon Dioxide 22 Anion Gap 7 BUN 12 Creatinine 0.79 Est GFR ( Amer) 130.5 Est GFR (Non-Af Amer) 101.5 BUN/Creatinine Ratio 15.2 Glucose 176 H Lactic Acid Calcium 8.9 Total Bilirubin AST ALT Alkaline Phosphatase Troponin I C-Reactive Protein B-Natriuretic Peptide Total Protein Albumin Globulin Albumin/Globulin Ratio Procalcitonin Urine Color Urine Appearance Urine pH Ur Specific [place] Urine Protein Urine Ketones Urine Blood Urine Nitrate Urine Bilirubin Urine Urobilinogen Ur Leukocyte Esterase Urine WBC (Auto) Urine RBC (Auto) Urine Bacteria Urine Sperm Urine Glucose Influenza A (Rapid) Influenza B (Rapid) Microbiology and Other Data: Microbiology 03/17/17 05:23 Urine Legionella Urinary Antigen - Final Negative Legionella 03/17/17 05:23 Urine Streptococcus pneumoniae Ag Screen - Final Negative S. pneumo Antigen 03/16/17 21:50 Sputum Gram Stain - Final 03/16/17 17:14 Nasal Influenza Types A,B Antigen (WILLI) - Final Specimen received for Influenza A/B Molecular testing Assess/Plan/Problems-Billing Assessment: 56 yo male PMH COPD, CVA, CT, HTN, HLD, s/p PPM, on coumadin (hx of LV thrombus in 2002, pt does not know reason), heavy EtOH, 2ppd smoker use p/w SOB, cough suspected COPD exaccerbation. Still on 8L. - Patient Problems (1) COPD (chronic obstructive pulmonary disease) Current Visit: Yes Status: Acute Code(s): J44.9 - CHRONIC OBSTRUCTIVE PULMONARY DISEASE, UNSPECIFIED SNOMED Code(s): 20121085 Comment: Continue dulera, duonebs prednisone 60mg daily, s/p solumedrol 125mg in ED continue cftx, azithromycin f/u sputum culture. add spiriva, singular was not on home O2. (2) Acute respiratory failure with hypoxia Current Visit: Yes Status: Acute Code(s): J96.01 - ACUTE RESPIRATORY FAILURE WITH HYPOXIA SNOMED Code(s): 46780575 Comment: Suspected COPD exaccerbation but with troponin elevation and CAD Hx and moderately elevated BNP 253 will get ECHO. 8L, wean as tolerated. (3) CAD (coronary artery disease) Current Visit: Yes Status: Acute Code(s): I25.10 - ATHSCL HEART DISEASE OF [place] CORONARY ARTERY W/O ANG PCTRS SNOMED Code(s): 22907095 Comment: continue coreg 6.25mg BID, aspirin 81mg daily , atorvastatin 20mg daily. (4) CVA (cerebral vascular accident) Current Visit: Yes Status: Acute Code(s): I63.9 - CEREBRAL INFARCTION, UNSPECIFIED SNOMED Code(s): 673178139 Comment: continue aspirin 81mg hx of LV thrombus, restart coumadin tomorrow, INR goal 2-3 per pt. INR daily (5) HTN (hypertension) Current Visit: Yes Status: Acute Code(s): I10 - ESSENTIAL (PRIMARY) HYPERTENSION SNOMED Code(s): 46840440 Comment: continue home coreg (6) HLD (hyperlipidemia) Current Visit: Yes Status: Acute Code(s): E78.5 - HYPERLIPIDEMIA, UNSPECIFIED SNOMED Code(s): 94051776 Comment: continue atorvastatin. (7) Elevated troponin Current Visit: Yes Status: Acute Code(s): R74.8 - ABNORMAL LEVELS OF OTHER SERUM ENZYMES SNOMED Code(s): 258958390 Comment: peaked 0.05. likely demand ischemia. (8) EtOH dependence Current Visit: Yes Status: Acute Code(s): F10.20 - ALCOHOL DEPENDENCE, UNCOMPLICATED SNOMED Code(s): 31932861 Comment: [facility] protocol (9) Smoker Current Visit: Yes Status: Acute Code(s): F17.200 - NICOTINE DEPENDENCE, UNSPECIFIED, UNCOMPLICATED SNOMED Code(s): 53558824 Comment: declined nicotine patch mediastinal lymphadenopathy, monitor as outpatient. Status and Disposition: medicine inpatient for hypoxic respiratory failure. Attending: Derik Johnson
[2017-03-17] MEDS ORDERED: Nicotine Inhaler* 10 MG AMP INH PRN (10:42)
[2017-03-17] MEDS ORDERED: Mouth Piece, Nicotine* 1 EACH CARTRIDGE INH PRN (10:42)
[2017-03-17] MEDS ORDERED: Perflutren Lipid Microsphere* 3 ML VIAL ONE (11:00)
[2017-03-17] MEDS ORDERED: Spiriva Inhaler DEVICE* 1 EACH DEVICE SCH (11:00)
[2017-03-17] MEDS: Montelukast Sodium TAB* 10 MG PO SCH (12:25)
[2017-03-17] MEDS: Nicotine PATCH 21 MG/24 HR* PATCH TRANSDERM SCH (12:27)
--- NOTE | 2017-03-17 12:27 | ECHO ---
Patient: ISMA GARCIA [facility] Rec#: [id number] : 1960 Date: 03/17/2017 Age: 56y Height: 175.26 cm / 69.0 in Weight: 95.25 kg / 209.9 lbs Sex: M BSA: 2.11 Room#: 440 Admit Date#: 03/16/2017 Type: Inpatient Referring: Derik Johnson Reading: Philip Mejia MD Seed Trucker: Pham Franco,HERBCS,RDMS CC: Philip Galdamez MD CC: Gabino Hayes MD Transthoracic Echocardiogram Indication: Respiratory Failure BP: 129/87 HR: 93 Rhythm: NSR Findings History: CAD, AL, angioplasty, LV thrombus, CVA, HTN, HLD, pacemaker, ETOH, smoker Technical Comments: The study is technically limited due to poor acoustic windows. Left Ventricle: The left ventricular chamber size is mildly dilated. Mild concentric left ventricular hypertrophy is observed. There are multiple regional wall motion abnormalities. The distal anterior wall apical wall distal septal wall, and inferoapical wall show akinesis with increased echogenicity of the wall with probable thinning (quality suboptmal due to lung tissue interference). There does not appears to be a large mobile apical thrombus as best as can be assessed. The estimated ejection fraction is 40-45%. The assessment of diastolic function is non-diagnostic. Left Atrium: The left atrial chamber size is normal. Right Ventricle: The right ventricular chamber size and systolic function are within normal limits. A pacemaker wire is visualized in the right ventricle. Right Atrium: The right atrial cavity size is normal. A pacemaker wire is visualized in the right atrium. Aortic Valve: There is no evidence of aortic valve thickening. Systolic excursion of the aortic valve is normal. There is no evidence of aortic regurgitation. There is no evidence of aortic stenosis. Mitral Valve: There is mitral annular calcification. The mitral valve leaflets are mildly thickened. There is a trace of mitral regurgitation. There is no evidence of mitral stenosis. Tricuspid Valve: The tricuspid valve leaflets are normal. There is trace tricuspid regurgitation. No pulmonary hypertension is noted. Pulmonic Valve: There is no evidence of pulmonic valve thickening. There is a trace pulmonic regurgitation. Pericardium: There is no significant pericardial effusion. Aorta: The aortic root appears normal. The aortic arch is not well visualized. Pulmonary Artery: The main pulmonary artery is not well visualized. Venous: The inferior vena cava appears normal in size. There is a greater than 50% respiratory change in the inferior vena cava dimension. Contrast: Definity was used to optimize study. A total of 3.5 ml was used Conclusions The study is technically limited due to poor acoustic windows. Mild concentric left ventricular hypertrophy is observed. There are multiple regional wall motion abnormalities. The distal anterior wall apical wall distal septal wall, and inferoapical wall show akinesis with increased echogenicity of the wall with probable thinning (quality suboptmal due to lung tissue interference). There does not appears to be a large mobile apical thrombus as best as can be assessed. The estimated ejection fraction is 40-45%. A pacemaker wire is visualized in the right ventricle. A pacemaker wire is visualized in the right atrium. There is a trace of mitral regurgitation. There is trace tricuspid regurgitation. There is a trace pulmonic regurgitation. Compared to report of study from 01/04/2003 the overall LV systolic function is mildly worse (was 45 %). Given limited imaging with lung tissue interference there does not appears to be any large thrombus in the LV appex. Measurements Name Value Normal Range RVIDd (AP) 2D 2.5 cm (0.9 - 2.6) RAd ISD 4CH 4.9 cm (3.4 - 4.9) RA (A4C)W 3.7 cm (2.9 - 4.6) IVSd (2D) 1.2 cm (0.6 - 1) LVPWd (2D) 1.2 cm (0.6 - 1) LVIDd (2D) 5.5 cm (3.6 - 5.4) LVIDs (2D) 4 cm - LV FS (2D) 27 % (25 - 45) Aortic Annulus 2 cm (1.4 - 2.6) Ao root diameter (2D) 3.3 cm (2.1 - 3.5) Ascending Ao 3 cm (2.1 - 3.4) LA dimension (AP) 2D 4.4 cm (2.3 - 3.8) LAd ISD 4CH 5.5 cm (2.9 - 5.3) LA ISD 4CH W 4.9 cm (2.5 - 4.5) Name Value Normal Range LA ESV SP 4CH (A/L) 62.12 ml - LA ESV SP 2CH (A/L) 60.76 ml - LA ESV BP (A/L) 63.78 ml - LA ESV BP (A/L) index 30 ml/m2 - LA ESV SP 4CH (MOD) 59.59 ml - LA ESV SP 2CH (MOD) 57.38 ml - Name Value Normal Range LV lateral e' Vmax 0.09 m/sec - Name Value Normal Range AV Vmax 1.5 m/sec - AV VTI 29 cm - AV peak gradient 9 mmHg - AV mean gradient 4.6 mmHg - LVOT Vmax 0.9 m/sec - LVOT VTI 18.5 cm - LVOT peak gradient 3.2 mmHg - LVOT mean gradient 2 mmHg - Name Value Normal Range MV Vmax 1.7 m/sec - MV VTI 27.6 cm - MV peak gradient 12 mmHg - MV mean gradient 3.9 mmHg - Name Value Normal Range TR Vmax 2.7 m/sec - TR peak gradient 29 mmHg - RAP 3 mmHg - RVSP 31 mmHg - IVC diameter 1.8 cm - Name Value Normal Range PV Vmax 1 m/sec - PV peak gradient 4 mmHg -
[2017-03-17] MEDS: Tiotropium CAP.INH* CAP.INH/18 MCG (USE ORDER SET !) INH SCH (13:53)
[2017-03-17] MEDS: cefTRIAXone(*) 1 GM in NS 0.9% 50 ML* 50 ML IVPB SCH (15:25)
[2017-03-17] MEDS: Azithromycin IV(*) 500 MG in NS 0.9% 250 ML* 250 ML IVPB SCH (16:30)
[2017-03-17] MEDS: Nicotine Patch Removal NOTE PATCH OFF SCH (19:47)
[2017-03-18] MEDS: Albuterol/Ipratropium NEB.SOL* Albuterol 2.5 MG/Ipratropium 0.5 MG 3 ML INH SCH ×4 (01:14→19:30)
[2017-03-18] MEDS: Mometasone/Formoter 200/5 MDI INH SCH ×2 (07:33→19:30)
[2017-03-18] MEDS: Tiotropium CAP.INH* CAP.INH/18 MCG (USE ORDER SET !) INH SCH (07:33)
[2017-03-18] MEDS: Atorvastatin* 20 MG TAB PO SCH (10:20)
[2017-03-18] MEDS: Aspirin EC Low Dose* 81 MG TAB.EC PO SCH (10:21)
[2017-03-18] MEDS: Multivitamins/Minerals TAB PO SCH (10:21)
[2017-03-18] MEDS: Folic Acid TAB* 1 MG PO SCH (10:21)
[2017-03-18] MEDS: Thiamine TAB* 100 MG TAB PO SCH (10:21)
[2017-03-18] MEDS: methylPREDNISolone 125 MG* 2 ML VIAL IV SCH ×2 (10:21→20:45)
[2017-03-18] MEDS: Montelukast Sodium TAB* 10 MG PO SCH (10:21)
[2017-03-18] MEDS: Carvedilol TAB* 6.25 MG PO SCH ×2 (10:21→20:40)
[2017-03-18] MEDS: Nicotine PATCH 21 MG/24 HR* PATCH TRANSDERM SCH (10:22)
[2017-03-18] MEDS ORDERED: Furosemide IV* 10 MG/ML 2 ML VIAL (20 MG) IV ONE (13:33)
--- NOTE | 2017-03-18 15:14 | PN ---
Subjective Date of Service: 03/18/17 Interval History: Pt still on 8L, satting low 90s. Asking about discharge. No chest pain/ tightness. Denies ever been on any diuretic. Sputum with staph aureus 1+. Afebrile. expiratory wheezing. Objective Active Medications: Acetaminophen (Tylenol Tab*) 650 mg PO Q4H PRN PRN Reason: FEVER/PAIN Albuterol (Ventolin 2.5 Mg/3 Ml Neb.Aicha*) 2.5 mg INH Q2H PRN PRN Reason: SOB/WHEEZING Last Admin: 03/17/17 05:46 Dose: 2.5 mg Albuterol/Ipratropium (Duoneb (Albuterol 2.5 Mg/Ipratropium 0.5 Mg)) 1 neb INH [id number] AWAKE [facility] Last Admin: 03/18/17 13:02 Dose: 1 neb Aspirin (Aspirin Ec Low Dose*) 81 mg PO DAILY [facility] Last Admin: 03/18/17 10:21 Dose: 81 mg Atorvastatin Calcium (Lipitor*) 20 mg PO DAILY [facility] Last Admin: 03/18/17 10:20 Dose: 20 mg Carvedilol (Coreg Tab*) 12.5 mg PO BID [facility] Device (Tiotropium Inhaler Device*) 1 each .SEE ORDER .USE w/ SPIRIVA CAPS [facility] Device (Nicotine Mouth Piece*) 1 each INH .USE WITH NICOTROL PRN PRN Reason: CRAVING Last Admin: 03/17/17 12:25 Dose: 1 each Folic Acid (Folvite Tab*) 1 mg PO DAILY [facility] Last Admin: 03/18/17 10:21 Dose: 1 mg Azithromycin 500 mg/ Sodium (Chloride) 250 mls @ 250 mls/hr IVPB Q24H [facility] Last Admin: 03/17/17 16:30 Dose: 250 mls/hr Ceftriaxone Sodium 1 gm/ (Sodium Chloride) 50 mls @ 200 mls/hr IVPB Q24H [facility] Last Admin: 03/17/17 15:25 Dose: 200 mls/hr Sodium Chloride (Ns 0.9% 1000 Ml*) 1,000 mls @ 100 mls/hr IV PER RATE [facility] Last Admin: 03/16/17 23:14 Dose: 100 mls/hr Methylprednisolone Sodium Succinate (Solu-Medrol 125mg *) 60 mg IV Q12H [facility] Last Admin: 03/18/17 10:21 Dose: 60 mg Mometasone Furoate/Formoterol Fumar (Dulera 200/5 Mdi*) 2 puff INH BID [facility] Last Admin: 03/18/17 07:33 Dose: 2 puff Montelukast Sodium (Singulair Tab*) 10 mg PO DAILY [facility] Last Admin: 03/18/17 10:21 Dose: 10 mg Multivitamins/Minerals (Theragran/Minerals Tab*) 1 tab PO DAILY [facility] Last Admin: 03/18/17 10:21 Dose: 1 tab Nicotine (Nicotine Patch 21 Mg/24 Hr*) 1 patch TRANSDERM DAILY [facility] Last Admin: 03/18/17 10:22 Dose: Not Given Nicotine (Nicotine Inhaler*) 10 mg INH Q2H PRN PRN Reason: CRAVING Last Admin: 03/17/17 12:25 Dose: 10 mg Ondansetron HCl (Zofran Inj*) 4 mg IV Q6H PRN PRN Reason: NAUSEA Pharmacy Profile Note (Nicotine Patch Removal Note*) 1 note PATCH OFF 2100 [facility] Last Admin: 03/17/17 19:47 Dose: 1 note Thiamine HCl (Vitamin B-1 Tab*) 100 mg PO DAILY [facility] Last Admin: 03/18/17 10:21 Dose: 100 mg Tiotropium [place] (Spiriva Cap.Inh*) 1 cap INH DAILY [facility] Last Admin: 03/18/17 07:33 Dose: 1 cap Warfarin Sodium (Coumadin Tab(*)) 5 mg PO DAILY@1700 [facility] PRN Reason: Protocol Vital Signs - 8 hr 03/18/17 03/18/17 03/18/17 07:33 07:37 08:00 Temperature 98.4 F Pulse Rate 98 100 Respiratory 24 17 20 Rate Blood Pressure 120/72 (mmHg) O2 Sat by Pulse 90 92 Oximetry 03/18/17 03/18/17 03/18/17 10:08 11:13 13:02 Temperature 97.8 F Pulse Rate 100 96 91 Respiratory 16 24 17 Rate Blood Pressure 119/70 (mmHg) O2 Sat by Pulse 92 93 94 Oximetry Oxygen Devices in Use Now: High Flow Nasal Cannula Appearance: NAD Eyes: No Scleral Icterus, PERRLA Ears/Nose/Mouth/Throat: NL Teeth, Lips, Gums, Mucous Membranes Moist Neck: NL Appearance and Movements; NL JVP Respiratory: Symmetrical Chest Expansion and Respiratory Effort, - - expiratory wheezing. No rhonchi or rales appreciated. Cardiovascular: NL Sounds; No Murmurs; No JVD, RRR Abdominal: No Hepatosplenomegaly, - - soft, moderately distended. non tender. Extremities: No Edema, No Clubbing, Cyanosis Skin: No Rash or Ulcers, No Nodules or Sclerosis Neurological: Alert and Oriented x 3, NL Sensation, NL Muscle Strength and Tone Result Diagrams: 03/17/17 05:41 03/17/17 05:41 Additional Lab and Data: Microbiology and Other Data: Microbiology 03/16/17 21:50 Sputum Gram Stain - Final 03/16/17 21:50 Sputum Sputum Culture - Preliminary Staphylococcus Aureus Normal Irish 03/16/17 16:24 Blood Venous Aerobic Blood Culture - Preliminary No Growth Day 1 03/16/17 16:24 Blood Venous Anaerobic Blood Culture - Preliminary No Growth Day 1 03/16/17 16:24 Blood Venous Aerobic Blood Culture - Preliminary No Growth Day 1 03/16/17 16:24 Blood Venous Anaerobic Blood Culture - Preliminary No Growth Day 1 03/17/17 05:23 Urine Legionella Urinary Antigen - Final Negative Legionella 03/17/17 05:23 Urine Streptococcus pneumoniae Ag Screen - Final Negative S. pneumo Antigen 03/16/17 17:14 Nasal Influenza Types A,B Antigen (WILLI) - Final Specimen received for Influenza A/B Molecular testing Assess/Plan/Problems-Billing Assessment: 56 yo male PMH COPD, CVA, [place], systolic CHF, HTN, HLD, s/p PPM, on coumadin (hx of LV thrombus in 2002), heavy EtOH, 2ppd smoker use p/w SOB, cough suspected COPD exacerbation. Still on 8L. - Patient Problems (1) COPD (chronic obstructive pulmonary disease) Current Visit: Yes Status: Acute Code(s): J44.9 - CHRONIC OBSTRUCTIVE PULMONARY DISEASE, UNSPECIFIED SNOMED Code(s): 27413310 Comment: Continue dulera, duonebs, spiriva. solumedrol 60mg BID, s/p solumedrol 125mg in ED continue cftx, azithromycin sputum culture with 1+ staph aureus. Added MRSA nares. f/u speciation. Continue singular for now was not on home O2. procalcitonin 0.6 (2) Acute respiratory failure with hypoxia Current Visit: Yes Status: Acute Code(s): J96.01 - ACUTE RESPIRATORY FAILURE WITH HYPOXIA SNOMED Code(s): 83521584 Comment: Suspected COPD exacerbation Hx of systolic CHF, EF stable 40-45%, moderately elevated BNP 253 wean oxygen as tolerated, goal sat 88-92%. (3) CHF (congestive heart failure) Current Visit: Yes Status: Acute Code(s): I50.9 - HEART FAILURE, UNSPECIFIED SNOMED Code(s): 80795964 Comment: Hx of systolic CHF, EF stable 40-45%, moderately elevated BNP 253 strict io, daily weights. Will start 20mg IV lasix daily. (4) CAD (coronary artery disease) Current Visit: Yes Status: Acute Code(s): I25.10 - ATHSCL HEART DISEASE OF [place] CORONARY ARTERY W/O ANG PCTRS SNOMED Code(s): 23238295 Comment: increase coreg from 6.25mg BID to 12.5mg which seems to be his home dose continue aspirin 81mg daily, atorvastatin 20mg daily. (5) CVA (cerebral vascular accident) Current Visit: Yes Status: Acute Code(s): I63.9 - CEREBRAL INFARCTION, UNSPECIFIED SNOMED Code(s): 181971014 Comment: continue aspirin 81mg hx of LV thrombus, restart coumadin 5mg today,INR goal 2-3 per pt. INR daily (6) HTN (hypertension) Current Visit: Yes Status: Acute Code(s): I10 - ESSENTIAL (PRIMARY) HYPERTENSION SNOMED Code(s): 88705217 Comment: continue home coreg (7) HLD (hyperlipidemia) Current Visit: Yes Status: Acute Code(s): E78.5 - HYPERLIPIDEMIA, UNSPECIFIED SNOMED Code(s): 34916818 Comment: continue atorvastatin. (8) Elevated troponin Current Visit: Yes Status: Acute Code(s): R74.8 - ABNORMAL LEVELS OF OTHER SERUM ENZYMES SNOMED Code(s): 849179856 Comment: peaked 0.05. likely demand ischemia. (9) EtOH dependence Current Visit: Yes Status: Acute Code(s): F10.20 - ALCOHOL DEPENDENCE, UNCOMPLICATED SNOMED Code(s): 30956013 Comment: now off [place] protocol (10) Smoker Current Visit: Yes Status: Acute Code(s): F17.200 - NICOTINE DEPENDENCE, UNSPECIFIED, UNCOMPLICATED SNOMED Code(s): 65668482 Comment: continue nicotine patch and inhaler mediastinal lymphadenopathy, monitor as outpatient. Status and Disposition: medicine inpatient for hypoxic respiratory failure. Attending: Derik Johnson
[2017-03-18] MEDS: cefTRIAXone(*) 1 GM in NS 0.9% 50 ML* 50 ML IVPB SCH (16:41)
[2017-03-18] MEDS: Azithromycin IV(*) 500 MG in NS 0.9% 250 ML* 250 ML IVPB SCH (17:33)
[2017-03-18] MEDS: Warfarin TAB(*) 5 MG PO SCH (17:43)
[2017-03-18] MEDS: Nicotine Patch Removal NOTE PATCH OFF SCH (20:55)
[2017-03-19] MEDS: Albuterol/Ipratropium NEB.SOL* Albuterol 2.5 MG/Ipratropium 0.5 MG 3 ML INH SCH ×4 (01:25→19:07)
[2017-03-19 07:01] LABS: INR 1.89 (0.77-1.02)
[2017-03-19] MEDS: Mometasone/Formoter 200/5 MDI INH SCH ×2 (07:47→19:08)
[2017-03-19] MEDS: Tiotropium CAP.INH* CAP.INH/18 MCG (USE ORDER SET !) INH SCH (07:47)
[2017-03-19] MEDS: Atorvastatin* 20 MG TAB PO SCH (09:33)
[2017-03-19] MEDS: Montelukast Sodium TAB* 10 MG PO SCH (09:33)
[2017-03-19] MEDS: methylPREDNISolone 125 MG* 2 ML VIAL IV SCH ×2 (09:33→19:58)
[2017-03-19] MEDS: Multivitamins/Minerals TAB PO SCH (09:33)
[2017-03-19] MEDS: Carvedilol TAB* 6.25 MG PO SCH ×2 (09:33→19:58)
[2017-03-19] MEDS: Folic Acid TAB* 1 MG PO SCH (09:33)
[2017-03-19] MEDS: Aspirin EC Low Dose* 81 MG TAB.EC PO SCH (09:33)
[2017-03-19] MEDS: Thiamine TAB* 100 MG TAB PO SCH (09:34)
[2017-03-19] MEDS: Nicotine PATCH 21 MG/24 HR* PATCH TRANSDERM SCH (09:34)
--- NOTE | 2017-03-19 16:25 | PN ---
Subjective Date of Service: 03/19/17 Interval History: Titrated down to 4L. Ambulated needed 3L for 89% with walking. MRSA PCR negative (has staph aureus on sputum culture). Objective Active Medications: Acetaminophen (Tylenol Tab*) 650 mg PO Q4H PRN PRN Reason: FEVER/PAIN Albuterol (Ventolin 2.5 Mg/3 Ml Neb.Aicha*) 2.5 mg INH Q2H PRN PRN Reason: SOB/WHEEZING Last Admin: 03/17/17 05:46 Dose: 2.5 mg Albuterol/Ipratropium (Duoneb (Albuterol 2.5 Mg/Ipratropium 0.5 Mg)) 1 neb INH [id number] AWAKE [facility] Last Admin: 03/19/17 12:07 Dose: 1 neb Aspirin (Aspirin Ec Low Dose*) 81 mg PO DAILY [facility] Last Admin: 03/19/17 09:33 Dose: 81 mg Atorvastatin Calcium (Lipitor*) 20 mg PO DAILY [facility] Last Admin: 03/19/17 09:33 Dose: 20 mg Carvedilol (Coreg Tab*) 12.5 mg PO BID [facility] Last Admin: 03/19/17 09:33 Dose: 12.5 mg Device (Tiotropium Inhaler Device*) 1 each .SEE ORDER .USE w/ SPIRIVA CAPS [facility] Device (Nicotine Mouth Piece*) 1 each INH .USE WITH NICOTROL PRN PRN Reason: CRAVING Last Admin: 03/17/17 12:25 Dose: 1 each Folic Acid (Folvite Tab*) 1 mg PO DAILY [facility] Last Admin: 03/19/17 09:33 Dose: 1 mg Azithromycin 500 mg/ Sodium (Chloride) 250 mls @ 250 mls/hr IVPB Q24H [facility] Last Admin: 03/18/17 17:33 Dose: 250 mls/hr Ceftriaxone Sodium 1 gm/ (Sodium Chloride) 50 mls @ 200 mls/hr IVPB Q24H [facility] Last Admin: 03/18/17 16:41 Dose: 200 mls/hr Sodium Chloride (Ns 0.9% 1000 Ml*) 1,000 mls @ 100 mls/hr IV PER RATE [facility] Last Admin: 03/16/17 23:14 Dose: 100 mls/hr Methylprednisolone Sodium Succinate (Solu-Medrol 125mg *) 60 mg IV Q12H [facility] Last Admin: 03/19/17 09:33 Dose: 60 mg Mometasone Furoate/Formoterol Fumar (Dulera 200/5 Mdi*) 2 puff INH BID [facility] Last Admin: 03/19/17 07:47 Dose: 2 puff Montelukast Sodium (Singulair Tab*) 10 mg PO DAILY [facility] Last Admin: 03/19/17 09:33 Dose: 10 mg Multivitamins/Minerals (Theragran/Minerals Tab*) 1 tab PO DAILY [facility] Last Admin: 03/19/17 09:33 Dose: 1 tab Nicotine (Nicotine Patch 21 Mg/24 Hr*) 1 patch TRANSDERM DAILY [facility] Last Admin: 03/19/17 09:34 Dose: Not Given Nicotine (Nicotine Inhaler*) 10 mg INH Q2H PRN PRN Reason: CRAVING Last Admin: 03/17/17 12:25 Dose: 10 mg Ondansetron HCl (Zofran Inj*) 4 mg IV Q6H PRN PRN Reason: NAUSEA Pharmacy Profile Note (Nicotine Patch Removal Note*) 1 note PATCH OFF 2100 [facility] Last Admin: 03/18/17 20:55 Dose: 1 note Thiamine HCl (Vitamin B-1 Tab*) 100 mg PO DAILY [facility] Last Admin: 03/19/17 09:34 Dose: 100 mg Tiotropium [place] (Spiriva Cap.Inh*) 1 cap INH DAILY [facility] Last Admin: 03/19/17 07:47 Dose: 1 cap Warfarin Sodium (Coumadin Tab(*)) 5 mg PO DAILY@1700 [facility] PRN Reason: Protocol Last Admin: 03/18/17 17:43 Dose: 5 mg Vital Signs - 8 hr 03/19/17 03/19/17 03/19/17 08:38 12:08 12:11 Temperature 97.3 F Pulse Rate 95 80 Respiratory 24 14 Rate Blood Pressure 137/88 (mmHg) O2 Sat by Pulse 92 84 91 Oximetry 03/19/17 12:14 Temperature 97.3 F Pulse Rate 80 Respiratory 20 Rate Blood Pressure 126/84 (mmHg) O2 Sat by Pulse 93 Oximetry Oxygen Devices in Use Now: High Flow Nasal Cannula Appearance: NAD Eyes: No Scleral Icterus, PERRLA Ears/Nose/Mouth/Throat: NL Teeth, Lips, Gums, Mucous Membranes Moist Neck: NL Appearance and Movements; NL JVP, Trachea Midline Respiratory: - - no wheezing or rhonchi. moderately tight air exchange Cardiovascular: NL Sounds; No Murmurs; No JVD, RRR, No Edema Extremities: No Edema, No Clubbing, Cyanosis Skin: No Rash or Ulcers, No Nodules or Sclerosis Neurological: Alert and Oriented x 3, NL Sensation, NL Muscle Strength and Tone Result Diagrams: 03/17/17 05:41 03/17/17 05:41 Additional Lab and Data: Microbiology and Other Data: Microbiology 03/16/17 21:50 Sputum Gram Stain - Final 03/16/17 21:50 Sputum Sputum Culture - Preliminary Staphylococcus Aureus Normal Irish 03/16/17 16:24 Blood Venous Aerobic Blood Culture - Preliminary No Growth Day 1 03/16/17 16:24 Blood Venous Anaerobic Blood Culture - Preliminary No Growth Day 1 03/16/17 16:24 Blood Venous Aerobic Blood Culture - Preliminary No Growth Day 1 03/16/17 16:24 Blood Venous Anaerobic Blood Culture - Preliminary No Growth Day 1 03/17/17 05:23 Urine Legionella Urinary Antigen - Final Negative Legionella 03/17/17 05:23 Urine Streptococcus pneumoniae Ag Screen - Final Negative S. pneumo Antigen 03/16/17 17:14 Nasal Influenza Types A,B Antigen (WILLI) - Final Specimen received for Influenza A/B Molecular testing Assess/Plan/Problems-Billing Assessment: 56 yo male PMH COPD, CVA, [place], systolic CHF, HTN, HLD, s/p PPM, on coumadin (hx of LV thrombus in 2002), heavy EtOH, 2ppd smoker use p/w SOB, cough suspected COPD exacerbation. Weaned from 8L to 3L last day. Staph in sputum but MRSA negative. - Patient Problems (1) COPD (chronic obstructive pulmonary disease) Current Visit: Yes Status: Acute Code(s): J44.9 - CHRONIC OBSTRUCTIVE PULMONARY DISEASE, UNSPECIFIED SNOMED Code(s): 48785981 Comment: Continue dulera, duonebs, spiriva. solumedrol 60mg BID, s/p solumedrol 125mg in ED continue cftx, stop azithromycin(day 3/3 of 500mg) sputum culture with 1+ staph aureus. MRSA nares negative. f/u speciation. Continue singular for now was not on home O2. weaned down to 3L procalcitonin 0.6 pulm f/u as outpatient. (2) Acute respiratory failure with hypoxia Current Visit: Yes Status: Acute Code(s): J96.01 - ACUTE RESPIRATORY FAILURE WITH HYPOXIA SNOMED Code(s): 48408968 Comment: Suspected COPD exacerbation Hx of systolic CHF, EF stable 40-45%, moderately elevated BNP 253 wean oxygen as tolerated, goal sat 88-92%. (3) CHF (congestive heart failure) Current Visit: Yes Status: Acute Code(s): I50.9 - HEART FAILURE, UNSPECIFIED SNOMED Code(s): 36630618 Comment: Hx of systolic CHF, EF stable 40-45%, moderately elevated BNP 253 strict io, daily weights. change to lasix 20mg daily. (4) CAD (coronary artery disease) Current Visit: Yes Status: Acute Code(s): I25.10 - ATHSCL HEART DISEASE OF [place] CORONARY ARTERY W/O ANG PCTRS SNOMED Code(s): 56781107 Comment: continue coreg at 12.5mg BID which seems to be his home dose continue aspirin 81mg daily, atorvastatin 20mg daily. (5) CVA (cerebral vascular accident) Current Visit: Yes Status: Acute Code(s): I63.9 - CEREBRAL INFARCTION, UNSPECIFIED SNOMED Code(s): 065328459 Comment: continue aspirin 81mg hx of LV thrombus, continue coumadin 5mg ,INR goal 2-3 per pt. INR daily (1.9) (6) HTN (hypertension) Current Visit: Yes Status: Acute Code(s): I10 - ESSENTIAL (PRIMARY) HYPERTENSION SNOMED Code(s): 00666829 Comment: continue home coreg (7) HLD (hyperlipidemia) Current Visit: Yes Status: Acute Code(s): E78.5 - HYPERLIPIDEMIA, UNSPECIFIED SNOMED Code(s): 96700165 Comment: continue atorvastatin. (8) Elevated troponin Current Visit: Yes Status: Acute Code(s): R74.8 - ABNORMAL LEVELS OF OTHER SERUM ENZYMES SNOMED Code(s): 818194053 Comment: peaked 0.05. likely demand ischemia. (9) EtOH dependence Current Visit: Yes Status: Acute Code(s): F10.20 - ALCOHOL DEPENDENCE, UNCOMPLICATED SNOMED Code(s): 94165024 Comment: now off [facility] protocol (10) Smoker Current Visit: Yes Status: Acute Code(s): F17.200 - NICOTINE DEPENDENCE, UNSPECIFIED, UNCOMPLICATED SNOMED Code(s): 09121228 Comment: continue nicotine patch and inhaler mediastinal lymphadenopathy 1.1cm paratracheal and collection 1.4x3.2, recommend surveillance imaging, likely high res CT chest as outpatient. Status and Disposition: medicine inpatient for hypoxic respiratory failure. Attending: Derik Johnson
[2017-03-19] MEDS: cefTRIAXone(*) 1 GM in NS 0.9% 50 ML* 50 ML IVPB SCH (16:43)
[2017-03-19] MEDS: Furosemide TAB* 20 MG PO SCH (17:39)
[2017-03-19] MEDS: Warfarin TAB(*) 5 MG PO SCH (17:39)
[2017-03-19] MEDS: Azithromycin IV(*) 500 MG in NS 0.9% 250 ML* 250 ML IVPB SCH (17:39)
[2017-03-19] MEDS: Nicotine Patch Removal NOTE PATCH OFF SCH (20:01)
[2017-03-20] MEDS: Albuterol/Ipratropium NEB.SOL* Albuterol 2.5 MG/Ipratropium 0.5 MG 3 ML INH SCH ×2 (00:21→07:47)
[2017-03-20 06:00] LABS: INR 2.16 (0.77-1.02)
[2017-03-20] MEDS: Mometasone/Formoter 200/5 MDI INH SCH (07:46)
[2017-03-20] MEDS: Tiotropium CAP.INH* CAP.INH/18 MCG (USE ORDER SET !) INH SCH (07:46)
[2017-03-20 08:46] VITALS: BP 156/37
[2017-03-20] MEDS: Nicotine PATCH 21 MG/24 HR* PATCH TRANSDERM SCH (08:47)
[2017-03-20] MEDS: Furosemide TAB* 20 MG PO SCH (08:53)
[2017-03-20] MEDS: Carvedilol TAB* 6.25 MG PO SCH (08:53)
[2017-03-20] MEDS: methylPREDNISolone 125 MG* 2 ML VIAL IV SCH (08:53)
[2017-03-20] MEDS: Aspirin EC Low Dose* 81 MG TAB.EC PO SCH (08:53)
[2017-03-20] MEDS: Folic Acid TAB* 1 MG PO SCH (08:54)
[2017-03-20] MEDS: Multivitamins/Minerals TAB PO SCH (08:54)
[2017-03-20] MEDS: Montelukast Sodium TAB* 10 MG PO SCH (08:54)
[2017-03-20] MEDS: Atorvastatin* 20 MG TAB PO SCH (08:54)
[2017-03-20] MEDS: Thiamine TAB* 100 MG TAB PO SCH (08:54)
--- NOTE | 2017-03-21 06:07 | DS ---
DISCHARGE SUMMARY: DATE OF ADMISSION: 03/16/17 DATE OF DISCHARGE: 03/20/17 ADMITTING PROVIDER: Raymon Grimm NP. ATTENDING PHYSICIAN: Derik Johnson MD. PRIMARY CARE PHYSICIAN: Dr. Hayes. CHIEF COMPLAINT: Shortness of breath, cough, upper respiratory symptoms. PRINCIPAL DIAGNOSIS: Chronic obstructive pulmonary disease exacerbation. HISTORY OF PRESENT ILLNESS AND HOSPITAL COURSE: Alban Salazar is a 56-year-old male with PMH of CAD, COPD, current smoker, [place], CVA, hypertension, hyperlipidemia, significant alcohol use, usually at least 6 beers a night, but less in the last week when he was not feeling well. He developed on and off cough, much worse in the last week. He was bringing up yellow sputum and was noted to be more short of breath in the mornings, though not requiring any pillows. He had been sleeping on his side. He was dyspneic with exertion. Denied any chest discomfort. Denied any chest pain or chest tightness. No long car trips or travel or mobilization. On presentation to the [facility], he was noted to be hypoxic, requiring 4 L for saturations in the high 80s. Chest x-ray in the emergency room showed a constellation of findings consistent with mild alveolar and interstitial pulmonary edema superimposed on advanced chronic obstructive pulmonary disease and emphysema. He had a chest CT angiogram, which showed no evidence of pulmonary embolism; diffuse central lobular emphysematous changes of the lung, slightly more progressed compared to CT 2006. Pleural based density of the bilateral lung base is most consistent with atelectasis and mediastinal lymph nodes mildly increased in size of uncertain clinical significance, which is subcarinal lymph node cluster measuring 1.4 x 3.2 cm maximal dimension and a midline anterior paratracheal lymph node measuring 11 mm in the short axis diameter. He was admitted for hypoxic respiratory failure and started on ceftriaxone and azithromycin. Blood cultures were negative x3 days. Sputum culture grew normal khris and 1+ Staphylococcus aureus. MRSA nares screen was negative. Legionella urine antigen and Streptococcus pneumoniae antigen screens were negative. Influenza rapid testing was negative. Initial BNP was 253, procalcitonin was 0.6. Patient was without leukocytosis on admission. Patient was given inhalers, albuterol, Dulera, Spiriva, and IV steroids, 125 mg Solu-Medrol in the ED, then 60 mg q.12 hours. Patient's oxygen requirement slowly declined from 8 L for the first 2 days of hospitalization, down to 3, and was ambulated and required oxygen upon discharge. He had a transthoracic echocardiogram, which demonstrated EF of 40% to 45%, stable from previous studies. Diagnostic evaluation of diastolic dysfunction. No evidence of previously seen left ventricular thrombus from 2002, for which the patient has been on Coumadin, although he initially was not able to start this. Patient is being discharged with suggestion to follow up with lamp stack developer, Dr. Awad as well as his primary care physician, Dr. Hayes, who graciously did stop by and visited the patient while he was hospitalized. Patient required nicotine patch while he was in the hospital and initially was placed on [facility] protocol given his significant alcohol history. He was given folate, thiamine, and multivitamins. DISCHARGE MEDICATIONS: Include: 1. Albuterol HFA inhaler 1 puff q.6 hours p.r.n. (new). 2. Aspirin 81 mg daily. 3. Symbicort 1 puff inhaled b.i.d. (new). 4. Coreg 12.5 mg p.o. b.i.d. 5. Folic acid 1 mg p.o. daily. 6. Multivitamin 1 tab p.o. daily. 7. Nicotine patch 21 mg daily. 8. Prednisone taper 20 mg tabs, to be taken 40 mg for 5 days and 20 mg for 5 days. 9. Simvastatin 40 mg p.o. daily. 10. Thiamine 100 mg p.o. daily. 11. Incruse Ellipta (umeclidinium bromide) 62.5 mcg inhaled daily (new). 12. Warfarin 5 mg p.o. daily. DISCHARGE DIET: Heart healthy, unchanged. ACTIVITY LEVEL: No restrictions, unchanged, but requiring 3 L of oxygen with ambulation. FOLLOWUP: Please follow up with Dr. Hayes within 3 to 5 days of discharge and Dr. Fiona Awad of Pulmonology. TIME SPENT ON DISCHARGE: Thirty-five minutes. [id number]/CPS #: [id number] MTDD
== END 2017-03-20 10:55 | disposition home or self-care (01) | DRG 190 ==
LOC: ED 15:06 → MEDTELE 19:36
PROVIDERS: ADMIT Hospitalist; ATTEND Internal Medicine
DX: J44.1 Chronic obstructive pulmonary disease with (acute) exacerbation (principal); J96.01 Acute respiratory failure with hypoxia; I50.20 Unspecified systolic (congestive) heart failure; J81.1 Chronic pulmonary edema; J98.11 Atelectasis; I11.0 Hypertensive heart disease with heart failure; I25.10 Atherosclerotic heart disease of native coronary artery without angina pectoris; F17.210 Nicotine dependence, cigarettes, uncomplicated; E78.5 Hyperlipidemia, unspecified; F10.20 Alcohol dependence, uncomplicated; R74.8 Abnormal levels of other serum enzymes; I44.7 Left bundle-branch block, unspecified; I25.2 Old myocardial infarction; Z86.73 Personal history of transient ischemic attack (TIA), and cerebral infarction without residual deficits; Z95.0 Presence of cardiac pacemaker; Z79.01 Long term (current) use of anticoagulants; Z79.82 Long term (current) use of aspirin; Z79.899 Other long term (current) drug therapy; Z88.1 Allergy status to other antibiotic agents; Z88.0 Allergy status to penicillin; Z82.49 Family history of ischemic heart disease and other diseases of the circulatory system
CPT/HCPCS: 36415; 71045; 71275; 80048; 80053; 81003; 81015; 82803; 83605; 83880; 84145; 84484; 85025; 85610; 85730; 86140; 87040; 87070; 87077; 87205; 87502; 87641; 87899; 93005; 93306; 94640; 94760; 99213; 99406; A9270-GY; C8929; G0463; J0456; J0696; J1940; J2930; Q9967

== ENCOUNTER 2017-08-15 06:12 | Day surgery (SDC) | payer MEDICARE, MEDICAID ==
[~2017-08-15 06:12] MED LIST: Buffered Lidocaine 0.9% SYRIN* 5 ML/SYR SYRINGE INTRADERM ONE; Famotidine IV* 10 MG/ML 2 ML (20 mg) IV ONE
[2017-08-15] MEDS ORDERED: Clindamycin 900 MG IVPREMIX(* 900 MG/50 ML SDV IV ONE (06:23)
[2017-08-15] MEDS ORDERED: Famotidine IV* 10 MG/ML 2 ML (20 mg) ONE (06:23)
[2017-08-15] MEDS ORDERED: Bupivacaine 0.5% SDV PF* 30ML VIAL ONE (07:00)
[2017-08-15] MEDS ORDERED: Levalbuterol 0.63MG/3ML NEB* UNIT OF USE INH ONE ×3 (07:23→09:50)
[2017-08-15] MEDS ORDERED: Levalbuterol 0.63MG/3ML NEB* UNIT OF USE INH PRN (07:23)
[2017-08-15] MEDS ORDERED: HYDROmorphone INJ* 1 MG/ML CARPUJECT SYRINGE IV PRN (07:23)
[2017-08-15] MEDS ORDERED: Acetaminophen TAB* 325 MG PO PRN (07:23)
[2017-08-15] MEDS ORDERED: oxyCODONE TAB* 5 MG TAB PO PRN (07:23)
[2017-08-15] MEDS ORDERED: Ondansetron INJ* 2 MG/ML VIAL IV PRN (07:23)
[2017-08-15] MEDS ORDERED: Naloxone* 0.4 MG/ML 1 ML VIAL IV PRN (07:23)
[2017-08-15] MEDS ORDERED: Midazolam* 1 MG/ML 5 ML VIAL (5 MG) ONE (07:31)
[2017-08-15] MEDS ORDERED: fentaNYL* 50 MCG/ML 2 ML VIAL (100 MCG VIAL) ONE ×2 (07:31→08:23)
[2017-08-15] MEDS ORDERED: KETAMINE HCL* 50 MG/ML 10 ML VIAL ONE (07:41)
[2017-08-15] MEDS ORDERED: Dexamethasone IV* 4 MG/ML 1 ML (4 MG) ONE (08:13)
[2017-08-15] MEDS ORDERED: Ketorolac INJ* 30 MG/ML 1 ML VIAL ONE (08:13)
[2017-08-15] MEDS ORDERED: Lidocaine 2% PF * 5 ML VIAL ONE (08:13)
[2017-08-15] MEDS ORDERED: Propofol* 10 MG/ML 20 ML BTL IV PUSH ONE (08:13)
[2017-08-15 10:31] VITALS: BP 132/88
--- NOTE | 2017-08-16 02:26 | OP ---
DATE OF OPERATION: 08/15/17 - [facility] DATE OF : 60 SURGEON: Humberto Weaver MD COMMERCIAL OR INSTITUTIONAL CLEANER: AWILDA Chino. An nursing assistant was needed for the procedure to aid in positioning of the arm and retraction. ANESTHESIOLOGIST: Dr. Doyle. ANESTHESIA: General. PRE-OP DIAGNOSES: 1. 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 2. Left carpal tunnel syndrome. POST-OP DIAGNOSES: 1. 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 2. Left carpal tunnel syndrome. OPERATIVE PROCEDURE: 1. Left ulnar nerve in situ decompression at the elbow with excision of anconeus epitrochlearis muscle. 2. Left ulnar nerve decompression of the wrist. 3. Left carpal tunnel release. INDICATIONS: Alban has severe disease. Both clinically and electrodiagnostically, he has atrophy in the ulnar innervated intrinsics in the hand. He has carpal tunnel syndrome as well. It has all been very progressive. Right side is not that affected. We talked about risks and benefits, he wanted to proceed with the aforementioned surgeries. ESTIMATED BLOOD LOSS: 2 mL. COMPLICATIONS: None. FINDINGS: As expected. DESCRIPTION OF PROCEDURE: Alban was seen in the preoperative holding area. The correct side, site, and procedure were identified. We came back to the operating room and the arm was prepped and draped in the usual fashion. A time- out was performed. I exsanguinated the arm with the Esmarch and the tourniquet was inflated to 250 mmHg. I began by making a longitudinal incision in the proximal palm, brought back across the wrist in Candice type fashion ulnarly. Full thickness flaps were raised of the distal antebrachial fascia and the transverse carpal ligament. I incised the transverse carpal ligament just off the radial aspect of the hook of the hamate and continued to release proximally until the entirety of the transverse carpal ligament in the distal antebrachial fascia was released. The release was completed distally. I released some of the palmar fascia. At this point, there was absolutely no compression on the median nerve, it was raised, swollen and clearly compressed through the carpal tunnel. I then came just ulnar to the hook of the hamate and released the fascia overlying Guyon's canal. The ulnar artery was identified, the ulnar nerve was identified just deep to that. I released it distally all the way until the bifurcation of the ulnar nerve was visualized. I can proximally released the remainder of the fascia and then the distal antebrachial fascia overlying the ulnar neurovascular bundle. I then gently retracted with a couple of Yolie retractors the ulnar nerve ulnarly as well as the artery ulnarly. The motor branch was visualized as it dived deep to the hook of the hamate. It was very deep. It did look compressed. I went ahead and released the fascia of the hypothenar muscles. I released the subfascial layer until the nerve was completely decompressed. Once both nerves of the wrist were completely decompressed, we irrigated out the wound. I cauterized the traversing vessels with the bipolar cautery. The wound was closed with 4-0 nylon suture. We then turned our attention to the elbow. The arm was abducted and externally rotated and a curvilinear incision was made over the posteromedial aspect of the elbow. Dissection was carried down to the fascia with Bovie cautery proximally and distally with tenotomy scissors. The release was started just proximal to the Luque's ligament. It was carried out proximally all the way past the arcade of [place]. There was a very prominent medial intermuscular septum over the nerve and this was excised. I then came distally and he did have an anconeus epitrochlearis muscle, this was excised in its entirety. The Luque's ligament was released. The superficial FCU fascia was released. The two heads of the FCU were split. The subfascial layer was split. It was clear that the nerve was severely compressed just deep to Luque's ligament where it had the anconeus epitrochlearis muscle. At this point, the elbow was flexed and extended multiple times, there was absolutely no instability of the nerve. The wound was irrigated out, hemostasis was obtained with the bipolar and with the Bovie. The subcutaneous tissue was reapproximated with 3-0 Vicryl and skin was closed with 3-0 Monocryl and Steri-Strips. The wounds were infiltrated with 0.25% plain Marcaine. A long arm splint with lateral buttress was applied. Tourniquet was deflated and he was taken to the recovery room in stable condition. [id number]/[facility] #: [id number] [facility] HOSPITALTrevor
== END 2017-08-15 10:51 | disposition home or self-care (01) ==
LOC: OR 06:12
PROVIDERS: ATTEND Orthopaedic Surgery Hand Surgery
DX: G56.22 Lesion of ulnar nerve, left upper limb (principal); G56.02 Carpal tunnel syndrome, left upper limb; I10 Essential (primary) hypertension; J44.9 Chronic obstructive pulmonary disease, unspecified; Z95.0 Presence of cardiac pacemaker; E78.00 Pure hypercholesterolemia, unspecified; F17.200 Nicotine dependence, unspecified, uncomplicated; Z79.82 Long term (current) use of aspirin; Z79.01 Long term (current) use of anticoagulants; Z79.899 Other long term (current) drug therapy; Z88.1 Allergy status to other antibiotic agents; Z88.0 Allergy status to penicillin
CPT/HCPCS: J1100; J1885; J2250; J2704; J3010

== ENCOUNTER 2017-08-27 09:35 | Emergency (ER) | payer MEDICARE, MEDICAID ==
[2017-08-27 10:37] VITALS: BP 129/89
--- NOTE | 2017-08-27 10:44 | ED ---
ED Suture/Wound Check - HPI Summary HPI Summary: Patient is a 57-year-old male presents [address] surgery by Dr. Weaver and 1 day after suture removal with a concern for minor dehiscence to the wound. Endorses some serosanguineous drainage from the area but denies any purulent drainage. Denies any pain. Good range of motion and continues to move about the fingers freely without pain. He states he has been keeping the area covered and moist with gauze wrap. He was seen at urgent care who sent him to the ED to have further evaluation. Denies any systemic symptoms including fevers, sweats, chills. - History Of Current Complaint Chief Complaint: EDExtremityUpper Stated Complaint: LT HAND INJURY Time Seen by Provider: 08/27/17 09:40 Hx Obtained From: Patient Onset/Duration: Gradual Onset Severity: Mild Pain Intensity: 0 Pain Scale Used: 0-10 Numeric - Allergies/Home Medications Allergies/Adverse Reactions: Allergies Allergy/AdvReac Type Severity Reaction Status Date / Time amoxicillin Allergy Hives Verified 08/27/17 09:55 Penicillins Allergy Hives Verified 08/27/17 09:55 varenicline [From Chantix] Allergy suicidal Verified 08/27/17 09:55 thoughts, hives PMH/Surg Hx/FS Hx/Imm Hx Previously Healthy: Yes Endocrine/Hematology History: Reports: Hx Anticoagulant Therapy - Coumadin Denies: Hx Diabetes Cardiovascular History: Reports: Hx Angioplasty, Hx Coronary Artery Disease, Hx Hypercholesterolemia, Hx Hypertension - ON MEDICATION FOR, Hx Pacemaker/ICD - [facility], Other Cardiovascular Problems/Disorders - 2 ANGIOPLASTIES IN 1990 Respiratory History: Reports: Hx Chronic Obstructive Pulmonary Disease (COPD) History: Denies: Hx Renal Disease Sensory History: Reports: Hx Contacts or Glasses - GLASSES Denies: Hx Hearing Aid Opthamlomology History: Reports: Hx Contacts or Glasses - GLASSES Neurological History: Reports: Other Neuro Impairments/Disorders - 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 Psychiatric History: Reports: Other Psychiatric Issues/Disorders - SI While on Chantix - Surgical History Surgery Procedure, Year, and Place: pacemaker/DEFIBRILLATOR 04/2013, angioplasty 07/1990 Hx Anesthesia Reactions: No - Immunization History Date of Tetanus Vaccine: UTD Date of Influenza Vaccine: UTD Infectious Disease History: No Infectious Disease History: Denies: Hx Clostridium Difficile, Hx Hepatitis, Hx Human Immunodeficiency Virus (HIV), Hx of Known/Suspected MRSA, Hx Shingles, Hx Tuberculosis, Hx Known/ Suspected VRE, Hx Known/Suspected VRSA, History Other Infectious Disease, Traveled Outside the [place] in Last 30 Days - Family History Known Family History: Positive: Cardiac Disease, Hypertension - Social History Occupation: Employed Full-time Lives: Alone Alcohol Use: Daily Alcohol Amount: 6-10 BEERS PER DAY Substance Use Type: Reports: None Hx Tobacco Use: Yes Smoking Status (MU): Heavy Every Day Tobacco Smoker Type: Cigarettes Amount Used/How Often: 1.5 packs a day 42 YEARS Have You Smoked in the Last Year: Yes Review of Systems Constitutional: Negative Negative: Fever, Chills, Fatigue, Skin Diaphoresis Negative: Palpitations, Chest Pain Negative: Shortness Of Breath, Cough Genitourinary: Negative Positive: no symptoms reported, see HPI Negative: Arthralgia, Myalgia Positive: Other - wound dehiscince - minor Neurological: Negative All Other Systems Reviewed And Are Negative: Yes Physical Exam Triage Information Reviewed: Yes Vital Signs On Initial Exam: Initial Vitals Temp Pulse Resp BP Pulse Ox 97.8 F 88 18 144/93 93 08/27/17 09:35 08/27/17 09:35 08/27/17 09:35 08/27/17 09:35 08/27/17 09:35 Vital Signs Reviewed: Yes Appearance: Positive: Well-Appearing, Well-Nourished Skin: Positive: Warm, Other - wound dehiscince to recent CT surgery Head/Face: Positive: Normal Head/Face Inspection Neck: Positive: Supple, No Lymphadenopathy Respiratory/Lung Sounds: Positive: Clear to Auscultation, Breath Sounds Present Cardiovascular: Positive: RRR, Pulses are Symmetrical in both Upper and Lower Extremities Musculoskeletal: Positive: Strength/ROM Intact Neurological: Positive: Sensory/Motor Intact, Alert, Oriented to Person Place, Time, Speech Normal Psychiatric: Positive: Normal, Affect/Mood Appropriate AVPU Assessment: Alert Diagnostics - Vital Signs Vital Signs Temp Pulse Resp BP Pulse Ox 08/27/17 10:36 98.4 F 84 18 129/89 94 08/27/17 09:35 97.8 F 88 18 144/93 93 - Laboratory Lab Statement: Any lab studies that have been ordered have been reviewed, and results considered in the medical decision making process. Course/Dx - Course Course Of Treatment: During the course of treatment, the patient is evaluated for minor wound dehiscence after suture removal yesterday 12 days s/p CT surgery. Denies any pain, fevers, sweats, chills, purulent drainage from the area area gauze appeared to have serosanguineous fluid. I have advised to keep it open to air, let the area scab over and will follow up with Dr. Weaver only as needed. Appears to not be infected at this time, but is given return precautions. - Differential Diagnoses Differential Diagnoses: Dehiscence - Clinical Impression Provider Diagnoses: Dehiscence of wound of skin Discharge - Sign-Out/Discharge Documenting (check all that apply): Discharge/Admit/Transfer - Discharge Plan Condition: Stable Disposition: HOME Patient Education Materials: Wound Dehiscence (ED) Referrals: Humberto Weaver MD [Medical Doctor] - Gabino Hayes MD [Primary Care Provider] - Additional Instructions: You have a minor wound dehiscence As instructed, use the occlusive yellow gauze, followed by square gauze and wrapped x 3 days If he develop any purulent, white, yellow drainage from the area, the area becomes painful or red or you develop streaking up the arm of redness you needs to return to the ED immediately Please follow-up with Dr. Weaver as instructed - Billing Disposition and Condition Condition: STABLE Disposition: Home
== END 2017-08-27 10:36 | disposition home or self-care (01) ==
LOC: ED 09:35
DX: T81.30XA Disruption of wound, unspecified, initial encounter (principal); I25.10 Atherosclerotic heart disease of native coronary artery without angina pectoris; I10 Essential (primary) hypertension; Z88.0 Allergy status to penicillin; Z95.0 Presence of cardiac pacemaker; F17.210 Nicotine dependence, cigarettes, uncomplicated; Z79.01 Long term (current) use of anticoagulants
CPT/HCPCS: 99282

== ENCOUNTER 2020-09-19 14:22 | Inpatient (IN) ==
[2020-09-19] MEDS ORDERED: Albuterol/Ipratropium NEB.SOL (2.5/0.5 MG) 3 ML NEB.SOLN INH ONE (14:41)
[2020-09-19] MEDS ORDERED: cefTRIAXone 1 gm/50 mL NS BAG 1 GM/50 ML BAG IV ONE (14:59)
[2020-09-19] MEDS ORDERED: Azithromycin 500 mg/250 ml NS 500 MG/250 ML BAG IVPB ONE (14:59)
[2020-09-19 15:01] LABS: PO2 Arterial 63 mmHg (80-100)
[2020-09-19 15:08] LABS: PCO2 Arterial 74 mmHg (35-45)
[2020-09-19 15:48] LABS: ABS Lymphocytes 0.5 10^3/ul (1.0-4.8); ABS Monocytes 0.3 10^3/ul (0-0.8); ABS Neutrophils 5.1 10^3/ul (1.5-7.7); Eosinophil % 0.7 %; Hematocrit 52 % (42-52); Hemoglobin 16.5 g/dL (14.0-18.0); Mean Corpuscular HGB Conc 32 g/dL (31-36); Mean Corpuscular Hemoglobin 30 pg (27-31); Mean Corpuscular Volume 93 fL (80-94); Mean Platelet Volume 7.9 fL (7.4-10.4); Nucleated Red Blood Cells % 0.2; Platelet Count 171 10^3/uL (150-450); Red Blood Count 5.57 10^6 /uL (4.18-5.48); Red Cell Distribution Width 15 % (10-15)
[2020-09-19 16:05] LABS: Troponin I 0.01 ng/mL (<0.03)
[2020-09-19 16:08] LABS: INR 2.08 (0.86-1.15)
[2020-09-19 16:23] LABS: Albumin 4.2 g/dL (3.2-5.2); Albumin/Globulin Ratio 1.5 (1-3); EGFR African American 106.9 (>60); EGFR Non-African American 88.3 (>60); Globulin 2.8 g/dL (2-4); Magnesium 1.9 mg/dL (1.9-2.7); Total Bilirubin 0.9 mg/dL (0.2-1.0)
[2020-09-19 16:31] LABS: PO2 Arterial 73 mmHg (80-100)
[2020-09-19 16:32] LABS: Potassium 5.2 mmol/L (3.5-5.0)
[2020-09-19 16:37] LABS: PCO2 Arterial 76 mmHg (35-45)
[2020-09-19] MEDS ORDERED: Furosemide 40 mg/4 ml IV VIAL IV ONE (17:25)
[2020-09-19] MEDS ORDERED: guaiFENesin/CODIENE 100mg/10mg 5 ML UDC PO PRN (17:26)
[2020-09-19] MEDS ORDERED: Albuterol HFA INHALER 8 gm MDI INH PRN (17:26)
[2020-09-19] MEDS ORDERED: Warfarin per PHARMACY **NOTE FOLLOW UP SCH (18:00)
[2020-09-19] MEDS: Warfarin per PHARMACY **NOTE FOLLOW UP SCH (18:41)
[2020-09-19] MEDS: Aspirin EC 81 mg TAB.EC (enteric coated) PO SCH (18:41)
[2020-09-19 20:54] LABS: Urine Appearance Clear; Urine Bilirubin Negative (Negative); Urine Blood 1+ (Negative); Urine Color Straw; Urine Glucose Negative (Negative); Urine Ketones Negative (Negative); Urine Nitrite Negative (Negative); Urine Protein Negative (Negative); Urine Specific Gravity 1.005 (1.002-1.030); Urine Urobilinogen Negative (Negative)
[2020-09-19 20:58] LABS: Urine Bacteria Absent (Absent); Urine Red Blood Cell Trace(0-2/hpf) (Absent); Urine White Blood Cell Absent (Absent)
[2020-09-19] MEDS ORDERED: Carvedilol 12.5 MG TAB (NF) PO SCH (21:00)
[2020-09-19 21:33] LABS: PCO2 Arterial 68 mmHg (35-45); PO2 Arterial 75 mmHg (80-100)
[2020-09-19] MEDS ORDERED: Thiamine 100 MG/ML 2 ml VIAL (200 mg) IM ONE (21:47)
[2020-09-19] MEDS: Multivitamins/Minerals TAB PO SCH (22:39)
[2020-09-20 05:21] LABS: ABS Lymphocytes 0.6 10^3/ul (1.0-4.8); ABS Monocytes 0.5 10^3/ul (0-0.8); ABS Neutrophils 6.3 10^3/ul (1.5-7.7); Hematocrit 47 % (42-52); Hemoglobin 15.4 g/dL (14.0-18.0); Lymphocyte % 8.6 %; Mean Corpuscular HGB Conc 33 g/dL (31-36); Mean Corpuscular Hemoglobin 30 pg (27-31); Mean Corpuscular Volume 92 fL (80-94); Mean Platelet Volume 8.3 fL (7.4-10.4); Nucleated Red Blood Cells % 0.2; Platelet Count 166 10^3/uL (150-450); Red Blood Count 5.16 10^6 /uL (4.18-5.48); Red Cell Distribution Width 15 % (10-15); White Blood Count 7.4 10^3/uL (3.5-10.8)
[2020-09-20 05:31] LABS: INR 2.91 (0.86-1.15)
[2020-09-20 05:38] LABS: ALT 13 U/L (7-52); Albumin 3.4 g/dL (3.2-5.2); Albumin/Globulin Ratio 1.5 (1-3); Alkaline Phosphatase 54 U/L (35-149); Blood Urea Nitrogen 17 mg/dL (6-24); CO2 Carbon Dioxide 34 mmol/L (22-32); Calcium 8.1 mg/dL (8.6-10.3); Chloride 95 mmol/L (101-111); EGFR African American 122.9 (>60); EGFR Non-African American 101.5 (>60); Globulin 2.3 g/dL (2-4); Glucose 107 mg/dL (70-100); Phosphorus 3.3 mg/dL (2.5-5.0); Sodium 134 mmol/L (135-145); Total Protein 5.7 g/dL (6.4-8.9)
[2020-09-20 05:41] LABS: Anion Gap 5 mmol/L (2-11)
[2020-09-20 06:21] LABS: Magnesium 1.8 mg/dL (1.9-2.7); Potassium Redraw 4.7 mmol/L (3.5-5.0)
[2020-09-20] MEDS ORDERED: Magnesium Sulfate 2 gm BAG 2 GM/50 ML BAG IVPB ONE (07:22)
[2020-09-20] MEDS: SPIRIVA Respimat (tiotropium) 2.5 mcg/inh Inhaler INH SCH (07:38)
[2020-09-20] MEDS ORDERED: Furosemide 40 mg/4 ml IV VIAL IV SLOW PU ONE (08:37)
[2020-09-20] MEDS: Multivitamins/Minerals TAB PO SCH (10:01)
[2020-09-20] MEDS: Warfarin DAILY REMINDER **NOTE FOLLOW UP SCH (17:52)
[2020-09-20] MEDS: Aspirin EC 81 mg TAB.EC (enteric coated) PO SCH (17:52)
[2020-09-20] MEDS: Warfarin per PHARMACY **NOTE FOLLOW UP SCH (20:06)
[2020-09-21 06:22] LABS: INR 2.76 (0.86-1.15)
[2020-09-21 06:25] LABS: Calcium 8.6 mg/dL (8.6-10.3); EGFR African American 105.5 (>60); EGFR Non-African American 87.2 (>60); Magnesium 1.9 mg/dL (1.9-2.7); Potassium 3.7 mmol/L (3.5-5.0)
[2020-09-21] MEDS: Multivitamins/Minerals TAB PO SCH (07:27)
[2020-09-21] MEDS: SPIRIVA Respimat (tiotropium) 2.5 mcg/inh Inhaler INH SCH (08:04)
[2020-09-21] MEDS: methylPREDNISolone SOD 40 mg/ml 1 ml VIAL IV SCH ×2 (11:29→22:52)
[2020-09-21] MEDS: Aspirin EC 81 mg TAB.EC (enteric coated) PO SCH (16:42)
[2020-09-21] MEDS: Warfarin per PHARMACY **NOTE FOLLOW UP SCH (17:06)
[2020-09-21] MEDS: Warfarin DAILY REMINDER **NOTE FOLLOW UP SCH (17:06)
[2020-09-21] MEDS ORDERED: Senna TAB 8.6 mg TAB PO ONE (23:19)
[2020-09-21] MEDS ORDERED: Senna TAB 8.6 mg TAB PO PRN (23:20)
[2020-09-22 06:33] LABS: INR 2.6 (0.86-1.15)
[2020-09-22 06:37] LABS: EGFR African American 108.3 (>60); EGFR Non-African American 89.5 (>60); Potassium 4.4 mmol/L (3.5-5.0)
[2020-09-22] MEDS: SPIRIVA Respimat (tiotropium) 2.5 mcg/inh Inhaler INH SCH (08:28)
[2020-09-22] MEDS: methylPREDNISolone SOD 40 mg/ml 1 ml VIAL IV SCH ×2 (10:09→21:38)
[2020-09-22] MEDS: Multivitamins/Minerals TAB PO SCH (10:09)
[2020-09-22] MEDS: Polyethylene Glycol 3350 17 GM PACKET PO SCH ×2 (10:10)
[2020-09-22] MEDS ORDERED: Perflutren Lipid Microsphere 3 ML VIAL ONE (14:52)
[2020-09-22] MEDS: Warfarin per PHARMACY **NOTE FOLLOW UP SCH (15:48)
[2020-09-22] MEDS: Warfarin DAILY REMINDER **NOTE FOLLOW UP SCH (15:48)
[2020-09-22] MEDS: Aspirin EC 81 mg TAB.EC (enteric coated) PO SCH (17:37)
[2020-09-23 05:51] LABS: ABS Lymphocytes 0.7 10^3/ul (1.0-4.8); ABS Monocytes 0.4 10^3/ul (0-0.8); Hematocrit 50 % (42-52); Hemoglobin 16.5 g/dL (14.0-18.0); Lymphocyte % 7.4 %; Mean Corpuscular HGB Conc 33 g/dL (31-36); Mean Corpuscular Hemoglobin 30 pg (27-31); Mean Corpuscular Volume 91 fL (80-94); Mean Platelet Volume 8.2 fL (7.4-10.4); Platelet Count 163 10^3/uL (150-450); Red Blood Count 5.47 10^6 /uL (4.18-5.48); Red Cell Distribution Width 16 % (10-15); White Blood Count 9.1 10^3/uL (3.5-10.8)
[2020-09-23 06:14] LABS: Anion Gap 4 mmol/L (2-11); Blood Urea Nitrogen 20 mg/dL (6-24); CO2 Carbon Dioxide 33 mmol/L (22-32); Calcium 8.9 mg/dL (8.6-10.3); Chloride 96 mmol/L (101-111); EGFR African American 114.4 (>60); EGFR Non-African American 94.5 (>60); Glucose 146 mg/dL (70-100); INR 3.31 (0.86-1.15); Potassium 4.9 mmol/L (3.5-5.0); Sodium 133 mmol/L (135-145)
[2020-09-23] MEDS: SPIRIVA Respimat (tiotropium) 2.5 mcg/inh Inhaler INH SCH (08:05)
[2020-09-23] MEDS: Multivitamins/Minerals TAB PO SCH (09:06)
[2020-09-23] MEDS: Polyethylene Glycol 3350 17 GM PACKET PO SCH (09:17)
[2020-09-23] MEDS: methylPREDNISolone SOD 40 mg/ml 1 ml VIAL IV SCH ×2 (12:31→21:24)
[2020-09-23] MEDS ORDERED: Albuterol/Ipratropium NEB.SOL (2.5/0.5 MG) 3 ML NEB.SOLN INH PRN (15:49)
[2020-09-23 16:09] LABS: C Reactive Protein < 1.00 mg/L (<8.01)
[2020-09-23] MEDS ORDERED: Warfarin - No Order Today **NOTE FOLLOW UP ONE (17:00)
[2020-09-23] MEDS: Aspirin EC 81 mg TAB.EC (enteric coated) PO SCH (17:14)
[2020-09-23] MEDS: Warfarin per PHARMACY **NOTE FOLLOW UP SCH (17:14)
[2020-09-23] MEDS: Warfarin DAILY REMINDER **NOTE FOLLOW UP SCH (17:14)
[2020-09-24 05:59] LABS: INR 2.69 (0.86-1.15)
[2020-09-24] MEDS: Multivitamins/Minerals TAB PO SCH (08:57)
[2020-09-24] MEDS: Polyethylene Glycol 3350 17 GM PACKET PO SCH (08:58)
[2020-09-24 11:28] VITALS: BP 131/68
[2020-09-24] MEDS: SPIRIVA Respimat (tiotropium) 2.5 mcg/inh Inhaler INH SCH (12:57)
== END 2020-09-24 16:10 | disposition home or self-care (01) | DRG 291 ==
LOC: ED 14:22 → ICU 17:08 → MED 09-20 11:18
PROVIDERS: ADMIT Student in an Organized Health Care Education/Training Program; ATTEND Internal Medicine

== ENCOUNTER 2021-09-24 12:36 | Inpatient (IN) ==
[2021-09-24] MEDS ORDERED: Albuterol/Ipratropium NEB.SOL (2.5/0.5 MG) 3 ML NEB.SOLN ONE (12:42)
[2021-09-24] MEDS ORDERED: Albuterol/Ipratropium NEB.SOL (2.5/0.5 MG) 3 ML NEB.SOLN INH ONE ×2 (12:43→12:55)
[2021-09-24] MEDS ORDERED: cefTRIAXone 1 gm/50 mL D5W 1 GM/50 ML BAG IV ONE (12:53)
[2021-09-24 13:17] LABS: ABS Eosinophils 0.1 10^3/ul (0-0.6); ABS Monocytes 0.6 10^3/ul (0-0.8); ABS Neutrophils 4.9 10^3/ul (1.5-7.7); Eosinophil % 1.2 %; Hematocrit 49 % (42-52); Hemoglobin 16.4 g/dL (14.0-18.0); Lymphocyte % 15.3 %; Mean Corpuscular HGB Conc 34 g/dL (31-36); Mean Corpuscular Hemoglobin 34 pg (27-31); Mean Corpuscular Volume 101 fL (80-94); Mean Platelet Volume 8.1 fL (7.4-10.4); Nucleated Red Blood Cells % 0.1; Platelet Count 179 10^3/uL (150-450); Red Blood Count 4.84 10^6 /uL (4.18-5.48); Red Cell Distribution Width 13 % (10-15); White Blood Count 6.7 10^3/uL (3.5-10.8)
[2021-09-24 13:28] LABS: INR 2.08 (0.89-1.11)
[2021-09-24 14:06] LABS: Albumin 4.1 g/dL (3.2-5.2); Albumin/Globulin Ratio 1.6 (1-3); C Reactive Protein 10.5 mg/L (<8.01); Calcium 8.7 mg/dL (8.6-10.3); Globulin 2.6 g/dL (2-4); Potassium 4.9 mmol/L (3.5-5.0); Total Bilirubin 0.6 mg/dL (0.2-1.0); Total Protein 6.7 g/dL (6.4-8.9); eGFR CKD-EPI 97.8 (>60)
[2021-09-24 14:28] LABS: PCO2 Arterial 64 mmHg (35-45); PO2 Arterial 67 mmHg (80-100)
[2021-09-24 14:41] LABS: High Sensitivity Troponin 1 Hr 17 pg/mL (<20)
[2021-09-24] MEDS ORDERED: Albuterol HFA INHALER 8 gm MDI INH PRN (15:32)
[2021-09-24] MEDS ORDERED: Enoxaparin 40 MG/0.4 ML SYR SUBCUT SCH (16:00)
[2021-09-24] MEDS ORDERED: guaiFENesin/CODIENE 100mg/10mg 5 ML UDC PO PRN (16:08)
[2021-09-24] MEDS ORDERED: Nicotine GUM 2MG FRUIT FLAVOR PO PRN (16:08)
[2021-09-24] MEDS: Azithromycin 500 mg/250 ml NS 500 MG/250 ML BAG IVPB SCH (18:24)
[2021-09-24] MEDS: Warfarin DAILY REMINDER **NOTE FOLLOW UP SCH (21:21)
[2021-09-25 07:12] LABS: Hematocrit 44 % (42-52); Mean Corpuscular HGB Conc 34 g/dL (31-36); Mean Corpuscular Hemoglobin 34 pg (27-31); Mean Corpuscular Volume 101 fL (80-94); Mean Platelet Volume 8.2 fL (7.4-10.4); Platelet Count 159 10^3/uL (150-450); Red Blood Count 4.39 10^6 /uL (4.18-5.48); Red Cell Distribution Width 13 % (10-15); White Blood Count 8.7 10^3/uL (3.5-10.8)
[2021-09-25 07:53] LABS: C Reactive Protein 11.25 mg/L (<8.01); Calcium 8.4 mg/dL (8.6-10.3); Potassium 4.8 mmol/L (3.5-5.0); eGFR CKD-EPI 98.5 (>60)
[2021-09-25] MEDS: SPIRIVA Respimat (tiotropium) 2.5 mcg/inh Inhaler INH SCH ×2 (08:12→16:23)
[2021-09-25 08:49] LABS: Vitamin D Total 25(OH) 14.4 ng/mL (20-50)
[2021-09-25] MEDS: Aspirin EC 81 mg TAB.EC (enteric coated) PO SCH (09:17)
[2021-09-25] MEDS: Calcium (OSCAL) 500 mg TAB PO SCH (09:17)
[2021-09-25] MEDS ORDERED: Cholecalciferol (VIT D3) 1,000 unit TAB PO SCH (10:00)
[2021-09-25] MEDS: Albuterol HFA INHALER 8 gm MDI INH SCH ×5 (16:09→23:18)
[2021-09-25] MEDS: Warfarin DAILY REMINDER **NOTE FOLLOW UP SCH (17:27)
[2021-09-25] MEDS: Azithromycin 500 mg/250 ml NS 500 MG/250 ML BAG IVPB SCH (17:32)
[2021-09-26] MEDS: Albuterol HFA INHALER 8 gm MDI INH SCH ×2 (03:09→08:01)
[2021-09-26 06:21] LABS: ABS Lymphocytes 1.5 10^3/ul (1.0-4.8); ABS Monocytes 0.7 10^3/ul (0-0.8); ABS Neutrophils 6.7 10^3/ul (1.5-7.7); Eosinophil % 0.2 %; Hematocrit 46 % (42-52); Hemoglobin 15.4 g/dL (14.0-18.0); Mean Corpuscular HGB Conc 34 g/dL (31-36); Mean Corpuscular Hemoglobin 34 pg (27-31); Mean Corpuscular Volume 101 fL (80-94); Mean Platelet Volume 8.3 fL (7.4-10.4); Nucleated Red Blood Cells % 0.1; Platelet Count 167 10^3/uL (150-450); Red Blood Count 4.52 10^6 /uL (4.18-5.48); Red Cell Distribution Width 13 % (10-15)
[2021-09-26 06:52] LABS: Calcium 8.7 mg/dL (8.6-10.3); Magnesium 2.1 mg/dL (1.9-2.7); Potassium 4.7 mmol/L (3.5-5.0); eGFR CKD-EPI 100.7 (>60)
[2021-09-26] MEDS: SPIRIVA Respimat (tiotropium) 2.5 mcg/inh Inhaler INH SCH (08:01)
[2021-09-26] MEDS: Calcium (OSCAL) 500 mg TAB PO SCH (08:53)
[2021-09-26] MEDS: Aspirin EC 81 mg TAB.EC (enteric coated) PO SCH (08:54)
[2021-09-26] MEDS ORDERED: Polyethylene Glycol 3350 17 GM PACKET PO PRN (09:20)
[2021-09-26] MEDS ORDERED: Senna TAB 8.6 mg TAB PO PRN (09:20)
[2021-09-26] MEDS ORDERED: Magnesium Hydroxide LIQ 30 ML UDC PO PRN (09:20)
[2021-09-26] MEDS: Albuterol/Ipratropium NEB.SOL (2.5/0.5 MG) 3 ML NEB.SOLN INH SCH ×3 (11:15→20:34)
[2021-09-26] MEDS: Warfarin DAILY REMINDER **NOTE FOLLOW UP SCH (17:04)
[2021-09-26] MEDS: Azithromycin 500 mg/250 ml NS 500 MG/250 ML BAG IVPB SCH (17:04)
[2021-09-26 19:08] LABS: Calcium 8.9 mg/dL (8.6-10.3); eGFR CKD-EPI 93.4 (>60)
[2021-09-26] MEDS ORDERED: Furosemide 40 mg/4 ml IV VIAL IV ONE (21:16)
[2021-09-26 22:13] LABS: PCO2 Arterial 58 mmHg (35-45); PO2 Arterial 63 mmHg (80-100)
[2021-09-27 06:18] LABS: ABS Lymphocytes 1.7 10^3/ul (1.0-4.8); ABS Monocytes 0.6 10^3/ul (0-0.8); ABS Neutrophils 5.3 10^3/ul (1.5-7.7); Eosinophil % 0.4 %; Hematocrit 45 % (42-52); Hemoglobin 15.2 g/dL (14.0-18.0); Lymphocyte % 22.3 %; Mean Corpuscular HGB Conc 34 g/dL (31-36); Mean Corpuscular Hemoglobin 34 pg (27-31); Mean Corpuscular Volume 100 fL (80-94); Mean Platelet Volume 8.3 fL (7.4-10.4); Nucleated Red Blood Cells % 0.2; Platelet Count 168 10^3/uL (150-450); Red Blood Count 4.48 10^6 /uL (4.18-5.48); Red Cell Distribution Width 13 % (10-15); White Blood Count 7.7 10^3/uL (3.5-10.8)
[2021-09-27] MEDS: Albuterol/Ipratropium NEB.SOL (2.5/0.5 MG) 3 ML NEB.SOLN INH SCH ×6 (07:40→23:00)
[2021-09-27] MEDS: Mometasone/Formoter 200/5 MDI INH SCH ×2 (07:59→18:45)
[2021-09-27] MEDS ORDERED: Albuterol/Ipratropium NEB.SOL (2.5/0.5 MG) 3 ML NEB.SOLN INH SCH (08:00)
[2021-09-27] MEDS ORDERED: Furosemide 20 mg/2 ml IV VIAL IV SLOW PU ONE (08:40)
[2021-09-27] MEDS ORDERED: Iodixanol (CONTRAST) 320 MG/ML 100 ML SDV IV ONE (09:36)
[2021-09-27] MEDS: cefTRIAXone 1 gm/50 mL D5W 1 GM/50 ML BAG IV SCH (10:32)
[2021-09-27] MEDS: Aspirin EC 81 mg TAB.EC (enteric coated) PO SCH (10:33)
[2021-09-27] MEDS: methylPREDNISolone SOD SUCC 40 mg/ml 1 ml VIAL IV SCH ×2 (10:33→16:14)
[2021-09-27] MEDS: Cholecalciferol (VIT D3) 1,000 unit TAB PO SCH (10:33)
[2021-09-27] MEDS: Calcium (OSCAL) 500 mg TAB PO SCH (10:33)
[2021-09-27 12:21] LABS: INR 4.09 (0.89-1.11)
[2021-09-27 12:49] LABS: Blood Urea Nitrogen 20 mg/dL (6-24); CO2 Carbon Dioxide 40 mmol/L (22-32); Calcium 9.1 mg/dL (8.6-10.3); Chloride 95 mmol/L (101-111); Glucose 96 mg/dL (70-100); Magnesium 1.8 mg/dL (1.9-2.7); Sodium 140 mmol/L (135-145); eGFR CKD-EPI 98.9 (>60)
[2021-09-27 12:51] LABS: Anion Gap 5 mmol/L (2-11)
[2021-09-27] MEDS ORDERED: Warfarin per PHARMACY **NOTE FOLLOW UP SCH (13:00)
[2021-09-27] MEDS: Warfarin DAILY REMINDER **NOTE FOLLOW UP SCH (15:43)
[2021-09-27] MEDS: Azithromycin 500 mg/250 ml NS 500 MG/250 ML BAG IVPB SCH (17:32)
[2021-09-28] MEDS: methylPREDNISolone SOD SUCC 40 mg/ml 1 ml VIAL IV SCH ×4 (00:47→23:30)
[2021-09-28] MEDS: Albuterol/Ipratropium NEB.SOL (2.5/0.5 MG) 3 ML NEB.SOLN INH SCH ×3 (03:04→11:38)
[2021-09-28 05:07] LABS: ABS Lymphocytes 0.6 10^3/ul (1.0-4.8); ABS Monocytes 0.3 10^3/ul (0-0.8); ABS Neutrophils 8.2 10^3/ul (1.5-7.7); Eosinophil % 0.3 %; Hematocrit 48 % (42-52); Hemoglobin 16.2 g/dL (14.0-18.0); Lymphocyte % 6.7 %; Mean Corpuscular HGB Conc 34 g/dL (31-36); Mean Corpuscular Hemoglobin 34 pg (27-31); Mean Corpuscular Volume 99 fL (80-94); Nucleated Red Blood Cells % 0.1; Platelet Count 171 10^3/uL (150-450); Red Blood Count 4.83 10^6 /uL (4.18-5.48); Red Cell Distribution Width 13 % (10-15); White Blood Count 9.1 10^3/uL (3.5-10.8)
[2021-09-28 05:18] LABS: INR 3.51 (0.89-1.11)
[2021-09-28 05:30] LABS: Calcium 9.1 mg/dL (8.6-10.3); Magnesium 1.8 mg/dL (1.9-2.7); Potassium 4.7 mmol/L (3.5-5.0); eGFR CKD-EPI 100.7 (>60)
[2021-09-28] MEDS: Mometasone/Formoter 200/5 MDI INH SCH ×2 (07:13→19:35)
[2021-09-28] MEDS ORDERED: Magnesium Sulfate 2 gm BAG 2 GM/50 ML BAG IVPB ONE (07:44)
[2021-09-28] MEDS ORDERED: Perflutren Lipid Microsphere 3 ML VIAL ONE (07:57)
[2021-09-28] MEDS: Cholecalciferol (VIT D3) 1,000 unit TAB PO SCH (08:32)
[2021-09-28] MEDS: Calcium (OSCAL) 500 mg TAB PO SCH (08:32)
[2021-09-28] MEDS: Aspirin EC 81 mg TAB.EC (enteric coated) PO SCH (08:32)
[2021-09-28] MEDS: Multivitamins/Minerals TAB PO SCH (08:34)
[2021-09-28] MEDS: cefTRIAXone 1 gm/50 mL D5W 1 GM/50 ML BAG IV SCH (10:02)
[2021-09-28] MEDS ORDERED: Albuterol 2.5mg/3 ml (0.083%) NEB.SOLN INH PRN (12:54)
[2021-09-28] MEDS: Albuterol HFA INHALER 8 gm MDI INH SCH ×2 (15:14→19:35)
[2021-09-28] MEDS: Azithromycin 500 mg/250 ml NS 500 MG/250 ML BAG IVPB SCH (16:25)
[2021-09-28] MEDS: Warfarin DAILY REMINDER **NOTE FOLLOW UP SCH (16:33)
[2021-09-28] MEDS ORDERED: Warfarin - No Order Today **NOTE FOLLOW UP ONE (17:00)
[2021-09-29 05:22] LABS: ABS Lymphocytes 0.7 10^3/ul (1.0-4.8); ABS Monocytes 0.4 10^3/ul (0-0.8); ABS Neutrophils 9.2 10^3/ul (1.5-7.7); Hematocrit 47 % (42-52); Hemoglobin 16.7 g/dL (14.0-18.0); Lymphocyte % 6.9 %; Mean Corpuscular HGB Conc 35 g/dL (31-36); Mean Corpuscular Hemoglobin 35 pg (27-31); Mean Corpuscular Volume 100 fL (80-94); Mean Platelet Volume 8.4 fL (7.4-10.4); Nucleated Red Blood Cells % 0.1; Platelet Count 161 10^3/uL (150-450); Red Blood Count 4.74 10^6 /uL (4.18-5.48); Red Cell Distribution Width 13 % (10-15); White Blood Count 10.2 10^3/uL (3.5-10.8)
[2021-09-29 05:26] LABS: INR 1.99 (0.89-1.11)
[2021-09-29 05:51] LABS: Blood Urea Nitrogen 25 mg/dL (6-24); CO2 Carbon Dioxide 31 mmol/L (22-32); Calcium 8.9 mg/dL (8.6-10.3); Chloride 98 mmol/L (101-111); Glucose 172 mg/dL (70-100); Magnesium 2.1 mg/dL (1.9-2.7); Sodium 135 mmol/L (135-145); eGFR CKD-EPI 101.5 (>60)
[2021-09-29 06:05] LABS: Anion Gap 6 mmol/L (2-11)
[2021-09-29 06:42] LABS: Phosphorus 4.5 mg/dL (2.5-5.0); Potassium Redraw 4.9 mmol/L (3.5-5.0)
[2021-09-29] MEDS: Mometasone/Formoter 200/5 MDI INH SCH ×2 (07:49→19:02)
[2021-09-29] MEDS: Albuterol HFA INHALER 8 gm MDI INH SCH ×3 (07:49→17:15)
[2021-09-29] MEDS: Aspirin EC 81 mg TAB.EC (enteric coated) PO SCH (08:34)
[2021-09-29] MEDS: Cholecalciferol (VIT D3) 1,000 unit TAB PO SCH (08:34)
[2021-09-29] MEDS: Calcium (OSCAL) 500 mg TAB PO SCH (08:34)
[2021-09-29] MEDS: methylPREDNISolone SOD SUCC 40 mg/ml 1 ml VIAL IV SCH ×2 (08:35→19:29)
[2021-09-29] MEDS: cefTRIAXone 1 gm/50 mL D5W 1 GM/50 ML BAG IV SCH (08:35)
[2021-09-29] MEDS: Multivitamins/Minerals TAB PO SCH (08:35)
[2021-09-29] MEDS ORDERED: Furosemide 40 mg/4 ml IV VIAL IV SLOW PU ONE (09:53)
[2021-09-29] MEDS: Cefepime 2 GM in Dextrose 2 GM/50 ML BAG IV SCH ×2 (10:52→19:29)
[2021-09-29] MEDS ORDERED: Zosyn per Pharmacy NOTE FOLLOW UP SCH (11:00)
[2021-09-29 13:09] LABS: Adenovirus Undetected (Undetected); Bordetella parapertussis Undetected (Undetected); Bordetella pertussis Undetected (Undetected); Chlamydophila pneumoniae Undetected (Undetected); Coronavirus 229E Undetected (Undetected); Coronavirus HKU1 Undetected (Undetected); Coronavirus NL63 Undetected (Undetected); Coronavirus OC43 Undetected (Undetected); Human Metapneumovirus Undetected (Undetected); Human Rhinovirus/Enterovirus Undetected (Undetected); Influenza A Undetected (Undetected); Influenza B Undetected (Undetected); Mycoplasmoides pneumoniae Undetected (Undetected); Parainfluenza Virus 1 Undetected (Undetected); Parainfluenza Virus 2 Undetected (Undetected); Parainfluenza Virus 3 Undetected (Undetected); Parainfluenza Virus 4 Undetected (Undetected); Respiratory Syncytial Virus Undetected (Undetected); Specimen Source NASOPHARYNGEAL SWAB
[2021-09-29] MEDS ORDERED: Azithromycin 500 mg/250 ml NS 500 MG/250 ML BAG IVPB SCH (16:00)
[2021-09-29] MEDS ORDERED: Albuterol HFA INHALER 8 gm MDI INH PRN (16:53)
[2021-09-29] MEDS: Warfarin DAILY REMINDER **NOTE FOLLOW UP SCH (17:12)
[2021-09-30] MEDS: Cefepime 2 GM in Dextrose 2 GM/50 ML BAG IV SCH ×3 (03:43→21:23)
[2021-09-30 05:42] LABS: INR 1.68 (0.89-1.11)
[2021-09-30 06:20] LABS: Calcium 8.7 mg/dL (8.6-10.3); Magnesium 2.1 mg/dL (1.9-2.7); Potassium 4.9 mmol/L (3.5-5.0); eGFR CKD-EPI 101.9 (>60)
[2021-09-30 06:56] LABS: ABS Lymphocytes 0.7 10^3/ul (1.0-4.8); ABS Monocytes 0.6 10^3/ul (0-0.8); ABS Neutrophils 8.2 10^3/ul (1.5-7.7); Eosinophil % 0.1 %; Hematocrit 48 % (42-52); Hemoglobin 16.6 g/dL (14.0-18.0); Lymphocyte % 7.4 %; Mean Corpuscular HGB Conc 35 g/dL (31-36); Mean Corpuscular Hemoglobin 35 pg (27-31); Mean Corpuscular Volume 102 fL (80-94); Mean Platelet Volume 8.4 fL (7.4-10.4); Nucleated Red Blood Cells % 0.1; Platelet Count 163 10^3/uL (150-450); Red Blood Count 4.74 10^6 /uL (4.18-5.48); Red Cell Distribution Width 13 % (10-15); White Blood Count 9.6 10^3/uL (3.5-10.8)
[2021-09-30] MEDS ORDERED: Furosemide 40 mg/4 ml IV VIAL IV ONE (07:59)
[2021-09-30] MEDS ORDERED: Cyanocobalamin INJ 1,000 MCG/ML VIAL 1 ML VIAL IM ONE (08:00)
[2021-09-30] MEDS: Cholecalciferol (VIT D3) 1,000 unit TAB PO SCH (08:26)
[2021-09-30] MEDS: Aspirin EC 81 mg TAB.EC (enteric coated) PO SCH (08:26)
[2021-09-30] MEDS: Multivitamins/Minerals TAB PO SCH (08:26)
[2021-09-30] MEDS: methylPREDNISolone SOD SUCC 40 mg/ml 1 ml VIAL IV SCH ×2 (08:26→21:24)
[2021-09-30] MEDS: Calcium (OSCAL) 500 mg TAB PO SCH (08:26)
[2021-09-30] MEDS: Mometasone/Formoter 200/5 MDI INH SCH ×2 (10:07→20:47)
[2021-09-30] MEDS: Warfarin DAILY REMINDER **NOTE FOLLOW UP SCH (17:05)
[2021-10-01] MEDS: Cefepime 2 GM in Dextrose 2 GM/50 ML BAG IV SCH ×3 (02:27→19:09)
[2021-10-01 05:28] LABS: ABS Lymphocytes 0.7 10^3/ul (1.0-4.8); ABS Monocytes 0.4 10^3/ul (0-0.8); ABS Neutrophils 7.4 10^3/ul (1.5-7.7); Eosinophil % 0.1 %; Hematocrit 49 % (42-52); Hemoglobin 16.7 g/dL (14.0-18.0); Lymphocyte % 8.4 %; Mean Corpuscular HGB Conc 34 g/dL (31-36); Mean Corpuscular Hemoglobin 33 pg (27-31); Mean Corpuscular Volume 98 fL (80-94); Mean Platelet Volume 8.1 fL (7.4-10.4); Nucleated Red Blood Cells % 0.2; Platelet Count 150 10^3/uL (150-450); Red Cell Distribution Width 13 % (10-15); White Blood Count 8.5 10^3/uL (3.5-10.8)
[2021-10-01 05:41] LABS: INR 1.75 (0.89-1.11)
[2021-10-01 05:57] LABS: Calcium 8.4 mg/dL (8.6-10.3); Phosphorus 3.6 mg/dL (2.5-5.0); eGFR CKD-EPI 100.3 (>60)
[2021-10-01 06:05] LABS: Potassium 5.2 mmol/L (3.5-5.0)
[2021-10-01] MEDS: methylPREDNISolone SOD SUCC 40 mg/ml 1 ml VIAL IV SCH (08:01)
[2021-10-01] MEDS: Multivitamins/Minerals TAB PO SCH (08:01)
[2021-10-01] MEDS: Calcium (OSCAL) 500 mg TAB PO SCH (08:01)
[2021-10-01] MEDS: Aspirin EC 81 mg TAB.EC (enteric coated) PO SCH (08:01)
[2021-10-01] MEDS: Cholecalciferol (VIT D3) 1,000 unit TAB PO SCH (08:01)
[2021-10-01] MEDS: Mometasone/Formoter 200/5 MDI INH SCH ×2 (08:12→19:05)
[2021-10-01] MEDS: SPIRIVA Respimat (tiotropium) 2.5 mcg/inh Inhaler INH SCH (08:12)
[2021-10-01] MEDS ORDERED: SODIUM ZIRCONIUM CYCLOSILICATE 10 GM PACKET PO ONE (08:26)
[2021-10-01] MEDS: Warfarin DAILY REMINDER **NOTE FOLLOW UP SCH (17:03)
[2021-10-02] MEDS: Cefepime 2 GM in Dextrose 2 GM/50 ML BAG IV SCH ×2 (03:17→12:04)
[2021-10-02 04:33] LABS: INR 2.34 (0.89-1.11)
[2021-10-02 04:36] LABS: ABS Lymphocytes 1.6 10^3/ul (1.0-4.8); ABS Neutrophils 6.2 10^3/ul (1.5-7.7); Eosinophil % 0.6 %; Hematocrit 51 % (42-52); Hemoglobin 16.8 g/dL (14.0-18.0); Lymphocyte % 18.2 %; Mean Corpuscular HGB Conc 33 g/dL (31-36); Mean Corpuscular Hemoglobin 33 pg (27-31); Mean Corpuscular Volume 99 fL (80-94); Mean Platelet Volume 8.4 fL (7.4-10.4); Nucleated Red Blood Cells % 0.2; Platelet Count 158 10^3/uL (150-450); Red Blood Count 5.11 10^6 /uL (4.18-5.48); Red Cell Distribution Width 13 % (10-15); White Blood Count 8.9 10^3/uL (3.5-10.8)
[2021-10-02 05:11] LABS: Calcium 8.6 mg/dL (8.6-10.3); Magnesium 2.1 mg/dL (1.9-2.7); Potassium 4.5 mmol/L (3.5-5.0); eGFR CKD-EPI 97.8 (>60)
[2021-10-02] MEDS: SPIRIVA Respimat (tiotropium) 2.5 mcg/inh Inhaler INH SCH (07:38)
[2021-10-02] MEDS: Mometasone/Formoter 200/5 MDI INH SCH (07:38)
[2021-10-02] MEDS: Cholecalciferol (VIT D3) 1,000 unit TAB PO SCH (08:19)
[2021-10-02] MEDS: Calcium (OSCAL) 500 mg TAB PO SCH (08:20)
[2021-10-02] MEDS: Aspirin EC 81 mg TAB.EC (enteric coated) PO SCH (08:20)
[2021-10-02] MEDS: Multivitamins/Minerals TAB PO SCH (08:20)
[2021-10-02] MEDS ORDERED: methylPREDNISolone SOD SUCC 40 mg/ml 1 ml VIAL IV SCH (09:00)
[2021-10-02 10:32] VITALS: BP 119/80
== END 2021-10-02 15:00 | disposition home or self-care (01) | DRG 189 ==
LOC: ED 12:36 → EDHOLD 12:36 → MED 16:57 → SUATTDRO 09-25 16:37 → MED 09-25 22:23 → ICU 09-27 07:45
PROVIDERS: ADMIT Internal Medicine; ATTEND Internal Medicine